=== PATIENT | male | born 1935 | race Caucasian/White ===

== ENCOUNTER 2016-12-19 13:13 | Inpatient (IN) ==
--- NOTE | 2016-12-19 13:23 | Emergency Department Note ---
Disposition Clinical Impression: Chest pain Qualifiers: Chest pain type: unspecified Qualified Code(s): R07.9 - Chest pain, unspecified Disposition: Admitted As Inpatient [facility] Care Provider[facility] - Forms: ED Satisfaction Letter Time of Disposition: 13:58 Chest Pain HPI - General Chief Complaint: ED Chest Pain Stated Complaint: elev troponin Time Seen by Provider: 12/19/16 13:20 Source: patient, EMS Mode of arrival: EMS Limitations: no limitations Vital Signs Reviewed: Yes Nursing Notes Reviewed: Yes - History of Present Illness HPI Narrative: 81-year-old who comes in complaining of chest pain was seen at the [facility] found have a slightly elevated troponin 0.89. Pt complaint: chest pain Onset (ago): Just VENDER Duration: intermittent Onset: during rest Pain Location: substernal, left chest Severity: moderate Quality: tightness, aching Pain Radiation: none Improves with: nitroglycerin Associated symptoms: Denies: nausea, vomiting Treatments prior to arrival chest pain: aspirin, nitroglycerin - Related Data Home Medications Medication Instructions Recorded Confirmed Alprazolam [Xanax 0.5 MG Tablet] 0.5 mg PO HS 05/02/16 08/14/16 Amlodipine [Norvasc] 5 mg PO BID 05/02/16 08/14/16 Aspirin 81 mg PO DAILY 05/02/16 08/14/16 Docusate [Colace] 100 mg PO DAILY 05/02/16 08/14/16 HYDROcodone/Acet 10/325 mg [[place] 1 tab PO Q6HR PRN 05/02/16 08/14/16 10-325 mg] Loratadine [Claritin] 10 mg PO DAILY 05/02/16 08/14/16 Metoprolol Succinate 100 mg PO DAILY 05/02/16 08/14/16 Mirabegron [Myrbetriq] 50 mg PO DAILY 05/02/16 08/14/16 Montelukast [Singulair] 10 mg PO DAILY 05/02/16 08/14/16 Polyethylene Glycol 3350 [MiraLAX] 17 gm PO DAILY 05/02/16 08/14/16 Tamsulosin [Flomax] 0.4 mg PO DAILY 05/02/16 08/14/16 Terazosin [Hytrin] 1 mg PO DAILY 05/02/16 08/14/16 Albuterol Sulfate 5 mg IH Q6H 08/14/16 08/14/16 Albuterol Sulfate [Proair 90 mcg IH Q4H 08/14/16 08/14/16 Respiclick] Ipratropium/Albuterol Neb [Duoneb] 3 ml IH Q6HR 08/14/16 08/14/16 Ipratropium/Albuterol Sulfate 4 gm IH Q4H 08/14/16 08/14/16 [Combivent Respimat Inhal [place]] Previous Rx's Medication Instructions Recorded GuaiFENesin/Dextromethorphan 1 each PO BID 14 Days 08/14/16 [Mucinex DM] Allergies Allergy/AdvReac Type Severity Reaction Status Date / Time No Known Allergies Allergy Verified 08/14/16 07:20 Constitutional: Denies: fever, chills, weakness, weight change Eyes: Denies: eye pain, eye discharge, vision change ENT ED: Denies: ear pain, throat pain, dental pain, hearing loss, epistaxis, congestion, dysphagia Cardiovascular: Reports: chest pain. Denies: palpitations, dyspnea on exertion , edema, syncope Respiratory: Denies: cough, dyspnea, wheezes, hemoptysis, stridor Gastrointestinal: Denies: abdominal pain, nausea, vomiting, diarrhea, constipation, hematemesis, melena, hematochezia Genitourinary: Denies: urgency, dysuria, frequency, hematuria Musculoskeletal: Denies: back pain, neck pain, arthralgia, myalgia Integumentary: Denies: rash, abrasion, lesions Neurological: Denies: headache, weakness, numbness, paresthesias, confusion, abnormal gait, vertigo Psychiatric: Denies: anxiety, depression, suicidal thoughts, homicidal thoughts , auditory hallucinations, visual hallucinations Endocrine: Denies: fatigue Hematological/Lymphatic: Denies: easy bleeding, easy bruising Allergic/Immunologic: Denies: facial swelling, urticaria Chest Pain PMH - Past Medical History Medical history: Reports: COPD, hypertension, other Psychiatric history: Reports: no psych history - Social History Smoking Status: Former smoker Alcohol use: Reports: rarely Drug use: Reports: none Physical Exam - General Limitations: no limitations General appearance: alert, in no apparent distress - Head Head exam: atraumatic, normocephalic, normal inspection - Eye Eye exam: Present: normal appearance, PERRL, EOMI - ENT ENT exam: normal exam, normal oropharynx, mucous membranes moist - Neck Neck exam: Present: normal inspection, full ROM, trachea midline - Chest Chest inspection: Present: normal inspection, symmetric chest wall rise - Respiratory Respiratory exam: Present: normal lung sounds bilaterally - Cardiovascular Cardiovascular exam: Present: regular rate, normal rhythm, normal heart sounds - Abdominal Exam Abdominal exam: Present: soft, Non-Tender. Absent: tenderness, distention, guarding, rebound, rigidity - Extremities Exam Extremities exam: Present: normal inspection, full ROM. Absent: tenderness, pedal edema - Expanded Lower Extremity Exam Neurovascular/Tendon exam: Absent: motor deficit, sensory deficit, tendon deficit Gait: observed and normal - Back Exam Back exam: Present: normal inspection, full ROM. Absent: tenderness - Neurological Exam Neurological exam: Present: alert, oriented X3 - Psychiatric Psychiatric exam: Present: normal affect, normal mood - Skin Skin exam: Present: warm, dry, intact, normal color Course - Consultations Consultation #1: Discussed with Dr. Saravia, admit. Time: 13:57 Vital Signs Temperature 98.2 F 12/19/16 13:16 Pulse Rate 80 12/19/16 13:16 Respiratory Rate 22 12/19/16 13:16 Blood Pressure 134/94 12/19/16 13:16 O2 Sat by Pulse Oximetry 96 12/19/16 13:16 Temperature 98.2 F 12/19/16 13:16 Pulse Rate 80 12/19/16 13:16 Respiratory Rate 22 12/19/16 13:16 Blood Pressure 134/94 12/19/16 13:16 O2 Sat by Pulse Oximetry 96 12/19/16 13:16 Oxygen Delivery Oxygen Delivery Room Air Heart Score - Score History: Moderately Suspicious EKG: Non Specific repolarisation Disturbance Age: Greater than 65 Risk Factors: Equal/Greater than 3 risk factor or history of atherosclerotic disease Troponin: 1-3x normal limit HEART Score Total: 7
[2016-12-19] MEDS ORDERED: Ondansetron 4 MG/2 ML VIAL IVP PRN (14:22)
[2016-12-19] MEDS ORDERED: Naloxone 0.4 MG/ML INJ IVP PRN (14:22)
[2016-12-19] MEDS ORDERED: Acetaminophen 325 MG TABLET PO PRN (14:22)
[2016-12-19] MEDS ORDERED: *HR* HYDROcodone/Acet 5/325 mg TABLET PO PRN (14:22)
[2016-12-19] MEDS ORDERED: *HR* Heparin 5,000 UNIT/ML VIAL IVP ONE (14:30)
[2016-12-19] MEDS ORDERED: *HR* Heparin 5,000 UNIT/ML VIAL IVP PRN ×4 (14:30→16:57)
[2016-12-19] MEDS ORDERED: Heparin 25,000 UNIT/500 ML D5W 25,000 UNIT/500 ML MLS IVC SCH ×2 (14:30→16:45)
--- NOTE | 2016-12-19 14:44 | Internal Med History&Physical ---
<[place] - Last Filed: 12/19/16 19:19> Date of Encounter: 12/19/16 Time of Encounter: 14:10 Assessment and Plan (1) Elevated troponin Current visit: Yes Status: Acute Initial troponin at [facility] 0.89. Pt had cp this am, but denies cp since arrival. Initial troponin here 0.13ng/mL. Spoke with Dr Moss at 1600. Recommends that we trend troponin, get an echo, and start heparin gtt. Pt has history of subdural hematoma in April 2016. Pt was seen at [facility] at that time, paperwork states that pt fell from his wheelchair, son also states the same, but now is convinced that Plavix caused the subdural hematoma. I discussed the increased risk of bleeding with son, away from the patient. He is aware and is POA, agrees to benefits and states to proceed with heparin gtt. Also at this time, pt changes his code status from DNR CCA to full code. Does want CPR and intubated. Repeat troponin x 2 Monitor labs Echo Heparin gtt (2) Chest pain Current visit: Yes Status: Resolved Pt states that he had chest pain earlier today, was given ASA and NTG sl prior to arrival, which helped alleviate his pain. EKG NSR with frequent PVCs, bedside monitor same. VS WNL rate 83, resps 20, BOP 149/76, 96% on room air. No chest wall tenderness and pain is not reproduceable. COPD well controlled per family member at bs. Monitor labs Continuous cardiac monitoring Continuous pulse oximetry Qualifiers: Chest pain type: unspecified Qualified Code(s): R07.9 - Chest pain, unspecified (3) COPD (chronic obstructive pulmonary disease) with emphysema Current visit: Yes Status: Chronic Pt COPD is well controlled with current medications. Denies recent change in cough, fever, wheezing. Continue home medications Continuous pulse oximetry 02 2L/nc Qualifiers: Emphysema type: unspecified Qualified Code(s): J43.9 - Emphysema, unspecified Internal Medicine - H&P: HPI Admitted From: Hospital to Hospital Transfer Plans for Post Hospital Care: Transfer Other History of present illness: Mr. Mckeon is a 81 year old male who presents as a transfer from the [facility] with chest pain and elevated troponin today. Pt states that earlier today he had chest pain, which has since resolved. ASA and NTG sl given prior to arrival to this ED. Initial troponin 0.89ng/dl at [facility]. EKG here shows sinus rhythm with frequent PVCs. History significant for bollous emphysema, cardiac stents, infrarenal AAA, diverticulosis, and subdural hematoma. Past Med Surg Social Fam HX - Past Medical History Medical history: COPD, hypertension, other Psychiatric history: no psych history - Social History Smoking Status: Former smoker Smokeless Tobacco Status: No Alcohol use: rarely Drug use: none Internal Medicine - H&P: Meds Amlodipine [Norvasc] 10 mg PO HS 05/02/16 [History] Aspirin 81 mg PO DAILY 05/02/16 [History] Docusate [Colace] 100 mg PO DAILY 05/02/16 [History] Montelukast [Singulair] 10 mg PO DAILY 05/02/16 [History] Polyethylene Glycol 3350 [MiraLAX] 17 gm PO DAILY PRN 05/02/16 [History] Tamsulosin [Flomax] 0.4 mg PO DAILY 05/02/16 [History] GuaiFENesin/Dextromethorphan [Mucinex DM] 1 each PO BID 14 Days 08/14/16 [Rx] Ipratropium/Albuterol Neb [Duoneb] 3 ml IH Q6HR 08/14/16 [History] Acetaminophen [Tylenol] 975 mg PO DAILY PRN MDD 3000mg 12/19/16 [History] Bisacodyl [Woman's Laxative] 10 mg PO DAILY PRN 12/19/16 [History] Carboxymethylcellulose Sodium [Refresh Celluvisc] 1 each OP QID 12/19/16 [ History] Chlorhexidine Gluconate [Betasept] 15 ml TP DAILY 12/19/16 [History] Ferrous Gluconate 324 mg PO DAILY 12/19/16 [History] Fluticasone Propionate Nasal [Flonase] 1 spray NS BID 12/19/16 [History] Furosemide [Lasix] 40 mg PO DAILY 12/19/16 [History] LevETIRAcetam [Keppra] 750 mg PO BID 12/19/16 [History] Mag Hydrox/Al Hydrox/Simeth [Maalox Advanced Suspension] 10 ml PO QID PRN [History] Magnesium Hydroxide [Milk of Magnesia] 30 ml PO DAILY PRN 12/19/16 [History] Megestrol Acetate [Megace] 10 ml PO BID 12/19/16 [History] Melatonin 6 mg PO HS PRN 12/19/16 [History] Metoprolol Succinate 25 mg PO DAILY 12/19/16 [History] Mirtazapine [Remeron] 30 mg PO HS 12/19/16 [History] Nitroglycerin 0.4 mg SL Q5M PRN 12/19/16 [History] Oxybutynin [Ditropan] 5 mg PO BID 12/19/16 [History] Tiotropium [Spiriva] 18 mcg IH DAILY 12/19/16 [History] Tramadol HCl [Ultram] 25 mg PO QAM 12/19/16 [History] Tramadol HCl [Ultram] 50 mg PO HS PRN 12/19/16 [History] Allergies No Known Allergies Allergy (Verified 12/19/16 14:48) All Systems PM: A 10-system review of systems was performed and is negative for pertinent findings except as documented above in the HPI. - Constitutional Constitutional: no chills, no fever(s), no falls, no weakness - EENT Eyes: no blurry vision - Cardiovascular Cardiovascular ROS IM: no chest pain, no dyspnea, no edema - Respiratory Respiratory: dyspnea, dyspnea on exertion, no cough, no wheezing - Gastrointestinal Gastrointestinal: no diarrhea, no nausea, no vomiting - Neurological Neurological ROS: no dizziness - Constitutional Vitals: Temp Pulse Resp BP Pulse Ox 98.2 F 83 22 139/74 96 12/19/16 13:16 12/19/16 13:50 12/19/16 13:16 12/19/16 13:50 12/19/16 13:50 General appearance: Present: A&O X 3, answers questions appropriately - Head Head exam: Present: atraumatic - ENT ENT exam: Present: mucous membranes dry, normal external ear exam - Neck Neck exam general surgery: Present: trachea midline. Absent: tenderness - Respiratory Respiratory exam: Present: decreased breath sounds, CTAB. Absent: chest wall tenderness, rales, rhonchi, wheezes - Cardiovascular Cardiovascular exam: Present: irregular rhythm, +S1, +S2. Absent: tachycardia - GI/Abdominal GI/Abdominal exam: Present: distended, firm, normal bowel sounds. Absent: tenderness - Neurological Exam Neurological exam: Present: alert, oriented X3 Internal Med - H&P Results - Labs CBC & Chem 7: 12/19/16 14:51 Labs: Sodium 141 Potassium 4.3 Chloride 107 C02 28 BUN 28 H Creatinine 148H Glucose 158 H CK 285 - EKG Data EKG shows normal: sinus rhythm, QRS complexes Rate: normal - EKG Data Prior EKG available for review: yes When compared to previous EKG: there is no significant change EKG comments: 12/19/16 16:05 NSR with PVCs <Joy Rodriguez - Last Filed: 12/19/16 19:38> Date of Encounter: 12/19/16 Internal Medicine - H&P: HPI History of present illness: Mr. Mckeon is a 81 year old male All Systems PM: A 10-system review of systems was performed and is negative for pertinent findings except as documented above in the HPI. - Constitutional Vitals: Temp Pulse Resp BP Pulse Ox 98.3 F 68 18 156/85 98 12/19/16 16:01 12/19/16 16:01 12/19/16 17:09 12/19/16 16:01 12/19/16 17:09 Internal Med - H&P Results - Labs CBC & Chem 7: 12/19/16 14:51 Labs: Short CBC 12/19/16 Range/Units 14:51 WBC 5.0 (4.3-11.1) K/mcL Hgb 12.1 L (12.9-16.9) g/dL Hct 36.6 L (37.5-50.1) % Plt Count 103 L (140-400) K/mcL Cardiac Enzymes 12/19/16 Range/Units 14:51 Troponin I 0.13 H* (0-0.03) ng/mL - Attending Attestation I examined this patient and reviewed laboratory, imaging and all diagnostic data. My medical decision-making was reviewed with KARLA Dobbs. I agree with the documented findings, disposition and treatment plan as described above.
[2016-12-19 15:12] LABS: Activated Partial Thrombo Time 23.6 Seconds (26.0-36.0)
[2016-12-19 15:25] LABS: Hematocrit 36.6 % (37.5-50.1); Hemoglobin 12.1 g/dL (12.9-16.9); Immature Platelets 12.6 % (1.1-6.1); Mean Corpuscular HGB Conc 33.1 g/dL (31.6-35.5); Mean Corpuscular Hemoglobin 31.3 pg (28.0-33.3); Mean Corpuscular Volume 94.6 fL (83.0-100.0); Mean Platelet Volume 11.8 fL (9.4-12.4); Red Blood Count 3.87 M/mcL (4.19-5.50); Red Cell Distribution Width 14.4 % (11.5-14.5)
[2016-12-19] MEDS ORDERED: Mag Hydrox/Al Hydrox/Simeth 30 ML UDC PO PRN (15:46)
[2016-12-19] MEDS ORDERED: Melatonin 3 MG TABLET PO PRN (15:46)
[2016-12-19] MEDS ORDERED: Ipratropium/Albuterol Neb 3 ML IH SCH (16:00)
--- NOTE | 2016-12-19 16:44 | Electrocardiograph Report ---
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
[2016-12-19] MEDS ORDERED: CARBOXYMETHYLCELLULOSE SODIUM OP SCH (17:00)
[2016-12-19] MEDS: Ipratropium/Albuterol Neb 3 ML IH SCH ×2 (17:09→22:11)
[2016-12-19 17:31] LABS: Activated Partial Thrombo Time 24.7 Seconds (26.0-36.0)
[2016-12-19] MEDS ORDERED: 0.9 % Sodium Chloride 1,000 ML ONE (17:36)
[2016-12-19] MEDS ORDERED: amLODIPine 5 MG TABLET PO SCH (21:00)
[2016-12-19] MEDS: Megestrol Acetate 400 MG/10 ML UDC PO SCH (21:41)
[2016-12-19] MEDS: levETIRAcetam 250 MG TABLET PO SCH (21:41)
[2016-12-19] MEDS: GuaiFENesin/Dextromethorphan TABLET PO SCH (21:42)
[2016-12-19] MEDS: amLODIPine 5 MG TABLET PO SCH (21:42)
[2016-12-19] MEDS: Mirtazapine 15 MG TABLET PO SCH (21:42)
[2016-12-19] MEDS: Fluticasone Propionate Nasal 50 MCG/SPRAY BOTTLE NS SCH (21:43)
[2016-12-20 02:42] LABS: Basophils # 0.1 K/mcL (0.0-0.2); Basophils % 0.9 %; Eosinophils # 0.1 K/mcL (0.0-0.6); Hematocrit 38.7 % (37.5-50.1); Hemoglobin 12.9 g/dL (12.9-16.9); Lymphocytes # 1.5 K/mcL (0.6-4.6); Mean Corpuscular HGB Conc 33.3 g/dL (31.6-35.5); Mean Corpuscular Hemoglobin 31.3 pg (28.0-33.3); Mean Corpuscular Volume 93.9 fL (83.0-100.0); Mean Platelet Volume 11.2 fL (9.4-12.4); Monocytes # 0.5 K/mcL (0.0-1.3); Monocytes % 8.8 %; Neutrophils # 3.7 K/mcL (1.6-8.9); Platelet Count 130 K/mcL (140-400); Red Blood Count 4.12 M/mcL (4.19-5.50); Red Cell Distribution Width 14.4 % (11.5-14.5); Segmented Neutrophils % 62.3 %
[2016-12-20 02:49] LABS: BUN/Creatinine Ratio 20 (6-26); Blood Urea Nitrogen 27 mg/dL (8-26); Calcium 9.1 mg/dL (8.6-10.8); Carbon Dioxide 24 mEq/L (19-29); Chloride 107 mEq/L (98-109); Glucose 111 mg/dL (70-99); Osmolality,Calculated 302 (280-300); Potassium 3.8 mEq/L (3.5-4.5); Sodium 143 mEq/L (136-145); eGFR For African Americans > 60 (> 60); eGFR For Non-African Americans 51 (> 60)
[2016-12-20] MEDS: Ipratropium/Albuterol Neb 3 ML IH SCH ×4 (04:04→21:23)
[2016-12-20] MEDS ORDERED: Metoprolol XL (24 HR) Succ 25 MG TAB.ER.24H PO SCH (09:00)
[2016-12-20] MEDS ORDERED: CHLORHEXIDINE GLUCONATE TP SCH (09:00)
[2016-12-20] MEDS ORDERED: Ferrous Gluconate [Ferrous Gluconate] 324 MG PO SCH (09:00)
[2016-12-20] MEDS ORDERED: Tiotropium 18 MCG inhalation IH SCH (09:00)
[2016-12-20] MEDS: levETIRAcetam 250 MG TABLET PO SCH ×2 (09:41→21:42)
[2016-12-20] MEDS: GuaiFENesin/Dextromethorphan TABLET PO SCH ×2 (09:42→21:42)
[2016-12-20] MEDS: Fluticasone Propionate Nasal 50 MCG/SPRAY BOTTLE NS SCH ×2 (09:43→22:57)
[2016-12-20] MEDS: Aspirin 81 MG TAB.CHEW PO SCH (09:43)
[2016-12-20] MEDS: Furosemide 40 MG TABLET PO SCH (09:43)
[2016-12-20] MEDS: Metoprolol XL (24 HR) Succ 25 MG TAB.ER.24H PO SCH (09:43)
[2016-12-20] MEDS: Megestrol Acetate 400 MG/10 ML UDC PO SCH ×2 (09:44→21:41)
[2016-12-20] MEDS: traMADol 50 MG TABLET PO SCH (09:44)
--- NOTE | 2016-12-20 10:12 | Cardiology Consult Note ---
Date of Encounter: 12/20/16 Time of Encounter: 10:10 Assessment and Plan (1) Elevated troponin Current Visit: Yes Status: Acute - Troponin at [facility] was 0.89 - Repeat here was 0.13 and is now 0.12 x2 - Patient denies any further chest pain - Stopped taking Plavix in April after a fall with subsequent SDH, treated at [facility] on Keppra - Patient is now a full code and does want intervention, if needed. Son is POA - Discontinue heparin gtt - Echo pending - Will also order nuclear stress test - Will optimize medical therapy - Cr above baseline at 1.35, will re-hydrate - Patient has multiple relative contraindications to heart cath, will proceed with echo and nuclear stress test - Further recommendations pending stress test, echo and attending evaluation Discussion w patient/family: The assessment and plan as outlined above was discussed with the patient and/or family members who expressed understanding and agreement. All questions were answered. Thank you for involving us in the care of your patient. Please call with any questions. History of Present Illness Consult date: 12/20/16 Requesting physician: Joy Rodriguez Consult reason: elevated trop Chief complaint: chest pain History of present illness: Mr. Mckeon is a 81 year old male who presented to the ED yesterday from the [facility] for chest pain and elevated troponin. Patient reports that he started having chest pain yesterday afternoon, subxiphoid, nonradiating, "felt like gas" lasted one hour and then resolved spontaneously. No other associated symptoms or radiation. The patient was previously a DNR-CCA. However, his son is power of senior trial attorney and the patient is now a full code. Patient has no acute complaints stating he is not had any further episodes of chest pain and "wants to go home." The patient does have a history of coronary artery disease requiring stent, but he is unsure when. Also has a history of hypertension. Recently had a subdural hematoma after a fall from his wheelchair in April 2016. He and his son were convinced that this was due to the Plavix so he quit taking it. Past Med Surg Social Fam HX - Past Medical History Medical history: COPD, hypertension, other Psychiatric history: no psych history - Social History Smoking Status: Former smoker Smokeless Tobacco Status: No Alcohol use: rarely Drug use: none Medications and Allergies Amlodipine [Norvasc] 10 mg PO HS 05/02/16 [History] Aspirin 81 mg PO DAILY 05/02/16 [History] Docusate [Colace] 100 mg PO DAILY 05/02/16 [History] Montelukast [Singulair] 10 mg PO DAILY 05/02/16 [History] Polyethylene Glycol 3350 [MiraLAX] 17 gm PO DAILY PRN 05/02/16 [History] Tamsulosin [Flomax] 0.4 mg PO DAILY 05/02/16 [History] GuaiFENesin/Dextromethorphan [Mucinex DM] 1 each PO BID 14 Days 08/14/16 [Rx] Ipratropium/Albuterol Neb [Duoneb] 3 ml IH Q6HR 08/14/16 [History] Acetaminophen [Tylenol] 975 mg PO DAILY PRN MDD 3000mg 12/19/16 [History] Bisacodyl [Woman's Laxative] 10 mg PO DAILY PRN 12/19/16 [History] Carboxymethylcellulose Sodium [Refresh Celluvisc] 1 each OP QID 12/19/16 [ History] Chlorhexidine Gluconate [Betasept] 15 ml TP DAILY 12/19/16 [History] Ferrous Gluconate 324 mg PO DAILY 12/19/16 [History] Fluticasone Propionate Nasal [Flonase] 1 spray NS BID 12/19/16 [History] Furosemide [Lasix] 40 mg PO DAILY 12/19/16 [History] LevETIRAcetam [Keppra] 750 mg PO BID 12/19/16 [History] Mag Hydrox/Al Hydrox/Simeth [Maalox Advanced Suspension] 10 ml PO QID PRN [History] Magnesium Hydroxide [Milk of Magnesia] 30 ml PO DAILY PRN 12/19/16 [History] Megestrol Acetate [Megace] 10 ml PO BID 12/19/16 [History] Melatonin 6 mg PO HS PRN 12/19/16 [History] Metoprolol Succinate 25 mg PO DAILY 12/19/16 [History] Mirtazapine [Remeron] 30 mg PO HS 12/19/16 [History] Nitroglycerin 0.4 mg SL Q5M PRN 12/19/16 [History] Oxybutynin [Ditropan] 5 mg PO BID 12/19/16 [History] Tiotropium [Spiriva] 18 mcg IH DAILY 12/19/16 [History] Tramadol HCl [Ultram] 25 mg PO QAM 12/19/16 [History] Tramadol HCl [Ultram] 50 mg PO HS PRN 12/19/16 [History] Allergies No Known Allergies Allergy (Verified 12/19/16 14:48) All Systems Review: A 10-system review of systems was performed and is negative for pertinent findings except as documented above in the HPI. - Constitutional Constitutional: no fatigue, no headache(s) - EENT Eyes: no blurred vision - Cardiovascular Cardiovascular: chest pain at rest, no diaphoresis, no dyspnea at rest, no dyspnea on exertion, no irregular heart rhythm, no leg edema, no lightheadedness , no orthopnea, no syncope - Respiratory Respiratory: no cough, no dyspnea - Gastrointestinal Gastrointestinal: no abdominal pain, no diarrhea, no nausea - Musculoskeletal Musculoskeletal: no back pain - Integumentary Integumentary: no rash - Neurological Neurological: no abnormal speech, no dizziness, no focal weakness, no syncope - Hematological/Lymphatic Hematologic/Lymphatic: no easy bleeding, no easy bruising Physical Examination Vital Signs, Last 4 Hours Temp Resp Pulse Ox 12/20/16 08:04 98.4 F 18 96 General: Conversant, No Apparent Distress HEENT: Atraumatic, Normocephaly, Mucus Membranes Moist Neck: No JVD, Normal carotid pulses Cardiac: Reg Rate and Rhythm, Normal S1 and S2, No Murmur Lungs: Normal Breath Sounds, No Wheeze, Rales, Rhonchi Neuro: Alert and responsive, No focal deficits noted Abdomen: Soft, Non-Tender Skin: No rashes noted on visualized skin Musculoskeletal: No Chest Wall Tenderness Extremities: No Clubbing, No Cyanosis, No Edema, Normal Pulses Results 12/20/16 01:02 12/20/16 01:02 Lab Results 12/19/16 12/19/16 12/19/16 14:51 14:51 14:51 WBC 5.0 Hgb 12.1 L Hct 36.6 L Plt Count 103 L INR 1.0 APTT 23.6 L Sodium Potassium Chloride Carbon Dioxide BUN Creatinine Glucose Calcium Magnesium Troponin I 0.13 H* 12/19/16 12/19/16 12/19/16 17:09 17:09 21:10 WBC Hgb Hct Plt Count INR 1.0 APTT 24.7 L Sodium Potassium Chloride Carbon Dioxide BUN Creatinine Glucose Calcium Magnesium 2.4 Troponin I 0.12 H* 12/20/16 12/20/16 12/20/16 01:02 01:02 01:02 WBC 5.9 Hgb 12.9 Hct 38.7 Plt Count 130 L INR APTT 35.3 Sodium Potassium Chloride Carbon Dioxide BUN Creatinine Glucose Calcium Magnesium Troponin I 0.12 H* 12/20/16 01:02 WBC Hgb Hct Plt Count INR APTT Sodium 143 Potassium 3.8 Chloride 107 Carbon Dioxide 24 BUN 27 H Creatinine 1.35 H Glucose 111 H Calcium 9.1 Magnesium Troponin I - Imaging and Cardiology Chest Xray: image reviewed Echo: pending - EKG Interpretation EKG results cardiology: personally reviewed (RBBB with frequent PVC's, no previous available at this time), no diagnostic ischemia Consult Discharge Plan - Plan [facility]errals: [facility] [Primary Care Provider] -
--- NOTE | 2016-12-20 18:48 | Internal Med Progress Note ---
Date of Encounter: 12/20/16 Time of Encounter: 18:42 - Assessment and plan (1) NSTEMI (non-ST elevated myocardial infarction) Current Visit: Yes Status: Acute Assessment and plan: Troponin at [facility] was 0.89 - Repeat here was 0.13 and is now 0.12 x2 - Patient denies any further chest pain - Stopped taking Plavix in April after a fall with subsequent SDH, treated at [place], on Keppra cardio was consulted, as per cardio ::::::,Given recent SDH, JO-ANN, and thrombocytopenia, he is at increased risk for LHC. Recommended regadenoson nuclear stress test, but patient states that he does not want a heart cath or stress test. We decided to check an echocardiogram after discussion with his son who is the POA> If his LV function is normal, will just proceed with medical management. If LVEF is significantly decreased, will reassess possibility of higher risk LHC. Complete TTE was done that showed LVEF 60-65%, moderate LVH, mild diastolic dysfunction, normal RV, mild AR, normal RVSP. No further cardiac testing is necessary at this time as per cardiology. Recommend continuing current medical therapy. Continue to monitor BP and add additional antihypertensive medications as necessary. (2) COPD (chronic obstructive pulmonary disease) with emphysema Current Visit: Yes Status: Chronic Assessment and plan: stable continue home meds. Qualifiers: Emphysema type: unspecified Qualified Code(s): J43.9 - Emphysema, unspecified - Time Spent With Patient 25 - 35 minutes - Subjective Interval history: Patient seen at the bedside, denies any complaints, chest pain-free at this time. Denies any shortness of breath. Admitted for an STEMI. Cardiology consult awaited. - Constitutional Vitals: Temp Pulse Resp BP Pulse Ox 97.6 F 75 18 149/90 95 12/20/16 16:41 12/20/16 16:41 12/20/16 16:41 12/20/16 16:41 12/20/16 16:41 General appearance: Present: A&O X 3, answers questions appropriately Exam: General: Conversant, No Apparent Distress HEENT: Atraumatic, Normocephaly, Mucus Membranes Moist Neck: No JVD, Normal carotid pulses Cardiac: Reg Rate and Rhythm, Normal S1 and S2, No Murmur Lungs: Normal Breath Sounds, No Wheeze, Rales, Rhonchi Neuro: Alert and responsive, No focal deficits noted Abdomen: Soft, Non-Tender Skin: No rashes noted on visualized skin Musculoskeletal: No Chest Wall Tenderness Extremities: No Clubbing, No Cyanosis, No Edema, Normal Pulses Internal Medicine: Result - Labs CBC & Chem 7: 12/20/16 01:02 12/20/16 01:02 Labs: Short CBC 12/20/16 Range/Units 01:02 WBC 5.9 (4.3-11.1) K/mcL Hgb 12.9 (12.9-16.9) g/dL Hct 38.7 (37.5-50.1) % Plt Count 130 L (140-400) K/mcL Neutrophils # 3.7 (1.6-8.9) K/mcL BMP 12/20/16 01:02 Sodium 143 Potassium 3.8 Chloride 107 Carbon Dioxide 24 BUN 27 H Creatinine 1.35 H Glucose 111 H Calcium 9.1 Cardiac Enzymes 12/19/16 12/20/16 Range/Units 21:10 01:02 Troponin I 0.12 H* 0.12 H* (0-0.03) ng/mL - ABG Interpretation ABG results: PT/INR, D-dimer PT 11.0 Seconds (9.4-12.1) 12/19/16 17:09 Consult Discharge Plan - Plan [facility]errals: [facility] [Primary Care Provider] -
--- NOTE | 2016-12-20 18:51 | Discharge Summary ---
Date of Encounter: 12/21/16 Time of Encounter: 18:49 - Discharge Diagnosis (1) Elevated troponin Priority: Primary Status: Acute (2) COPD (chronic obstructive pulmonary disease) with emphysema Priority: Secondary Status: Chronic Qualifiers: Emphysema type: unspecified Qualified Code(s): J43.9 - Emphysema, unspecified (3) Non-STEMI (non-ST elevated myocardial infarction) Priority: Primary Status: Acute - Discharge Medications Home Medications: Amlodipine [Norvasc] 10 mg PO HS 05/02/16 [History] Aspirin 81 mg PO DAILY 05/02/16 [History] Docusate [Colace] 100 mg PO DAILY 05/02/16 [History] Montelukast [Singulair] 10 mg PO DAILY 05/02/16 [History] Polyethylene Glycol 3350 [MiraLAX] 17 gm PO DAILY PRN 05/02/16 [History] Tamsulosin [Flomax] 0.4 mg PO DAILY 05/02/16 [History] GuaiFENesin/Dextromethorphan [Mucinex DM] 1 each PO BID 14 Days 08/14/16 [Rx] Ipratropium/Albuterol Neb [Duoneb] 3 ml IH Q6HR 08/14/16 [History] Acetaminophen [Tylenol] 975 mg PO DAILY PRN MDD 3000mg 12/19/16 [History] Bisacodyl [Woman's Laxative] 10 mg PO DAILY PRN 12/19/16 [History] Carboxymethylcellulose Sodium [Refresh Celluvisc] 1 each OP QID 12/19/16 [ History] Chlorhexidine Gluconate [Betasept] 15 ml TP DAILY 12/19/16 [History] Ferrous Gluconate 324 mg PO DAILY 12/19/16 [History] Fluticasone Propionate Nasal [Flonase] 1 spray NS BID 12/19/16 [History] Furosemide [Lasix] 40 mg PO DAILY 12/19/16 [History] LevETIRAcetam [Keppra] 750 mg PO BID 12/19/16 [History] Mag Hydrox/Al Hydrox/Simeth [Maalox Advanced Suspension] 10 ml PO QID PRN [History] Magnesium Hydroxide [Milk of Magnesia] 30 ml PO DAILY PRN 12/19/16 [History] Megestrol Acetate [Megace] 10 ml PO BID 12/19/16 [History] Melatonin 6 mg PO HS PRN 12/19/16 [History] Metoprolol Succinate 25 mg PO DAILY 12/19/16 [History] Mirtazapine [Remeron] 30 mg PO HS 12/19/16 [History] Nitroglycerin 0.4 mg SL Q5M PRN 12/19/16 [History] Oxybutynin [Ditropan] 5 mg PO BID 12/19/16 [History] Tiotropium [Spiriva] 18 mcg IH DAILY 12/19/16 [History] Tramadol HCl [Ultram] 25 mg PO QAM 12/19/16 [History] Tramadol HCl [Ultram] 50 mg PO HS PRN 12/19/16 [History] Allergies/Adverse Reactions: Allergies No Known Allergies Allergy (Verified 12/19/16 14:48) Procedures/tests Complete & Pending: Procedures Performed prior 72 hours Category Date Time Status EV echocardiogram Stat Y 12/20/16 16:26 Completed Date of admission: 12/19/16 14:15 Primary care physician: PCP [facility] Consults: 12/19/16 15:44 Consult to Cardiology [CONS] Stat Comment: Consulting Provider: Cardiology [facility] Reason for Consult: Elevated troponin, redraw elevated Time Notified: 15:45 Call Completed: Yes 12/20/16 14:49 Consult to Kitchen Clerk [CONS] Routine Reason for SW Consult: pt [facility] Discharging clinician: Deanna Spear Anticipated date of discharge: 12/21/16 - Patient Status Disposition: Home, Self-Care Condition: Fair Functional capacity at discharge: independent ambulation Overall status at discharge: patient is back to baseline - Discharge Instructions [facility] With: [facility] [[facility] Care Provider] - - Diet and Activity Activity: as per physical therapy Diet: advance to your usual diet, other (cardiac diet) Interval History: Mr. Mckeon is a 81 year old male who presented to the ED yesterday from the [facility] for chest pain and elevated troponin. Patient reports that he started having chest pain yesterday afternoon, subxiphoid, nonradiating, "felt like gas" lasted one hour and then resolved spontaneously. No other associated symptoms or radiation. The patient was previously a DNR-CCA. However, his son is power of food services coordinator and the patient is now a full code. Patient has no acute complaints stating he is not had any further episodes of chest pain and "wants to go home." The patient does have a history of coronary artery disease requiring stent, but he is unsure when. Also has a history of hypertension. Recently had a subdural hematoma after a fall from his wheelchair in April 2016. He and his son were convinced that this was due to the Plavix so he quit taking it. Hospital course: Troponin at [facility] was 0.89 - Repeat here was 0.13 and is now 0.12 x2 - Patient denies any further chest pain - Stopped taking Plavix in April after a fall with subsequent SDH, treated at [place], on [facility] cardio was consulted, as per cardio ::::::,Given recent SDH, JO-ANN, and thrombocytopenia, he is at increased risk for LHC. Recommended regadenoson nuclear stress test, but patient states that he does not want a heart cath or stress test. We decided to check an echocardiogram after discussion with his son who is the POA> If his LV function is normal, will just proceed with medical management. If LVEF is significantly decreased, will reassess possibility of higher risk LHC. Complete TTE was done that showed LVEF 60-65%, moderate LVH, mild diastolic dysfunction, normal RV, mild AR, normal RVSP. No further cardiac testing is necessary at this time as per cardiology. Recommend continuing current medical therapy. patinet stable to be dc and follow up as OP with cardiology. Time spent discussing smoking cessation with patient: more than 10 minutes - Time Spent with Patient Total time spent providing and/or coordinating discharge services: Greater than 30 minutes - Constitutional Vitals: Temp Pulse Resp BP Pulse Ox 97.6 F 75 18 149/90 95 12/20/16 16:41 12/20/16 16:41 12/20/16 16:41 12/20/16 16:41 12/20/16 16:41 General appearance: Present: A&O X 3, answers questions appropriately Exam: General: Conversant, No Apparent Distress HEENT: Atraumatic, Normocephaly, Mucus Membranes Moist Neck: No JVD, Normal carotid pulses Cardiac: Reg Rate and Rhythm, Normal S1 and S2, No Murmur Lungs: Normal Breath Sounds, No Wheeze, Rales, Rhonchi Neuro: Alert and responsive, No focal deficits noted Abdomen: Soft, Non-Tender Skin: No rashes noted on visualized skin Musculoskeletal: No Chest Wall Tenderness Extremities: No Clubbing, No Cyanosis, No Edema, Normal Pulses
[2016-12-20] MEDS: amLODIPine 5 MG TABLET PO SCH (21:42)
[2016-12-20] MEDS: Mirtazapine 15 MG TABLET PO SCH (21:42)
[2016-12-21] MEDS ORDERED: GI Cocktail 40 ML EACH PO ONE (00:28)
[2016-12-21] MEDS: Ipratropium/Albuterol Neb 3 ML IH SCH ×2 (04:28→11:00)
[2016-12-21 09:05] LABS: Basophils % 0.6 %; Eosinophils # 0.1 K/mcL (0.0-0.6); Eosinophils % 0.9 %; Hematocrit 39.3 % (37.5-50.1); Hemoglobin 13.3 g/dL (12.9-16.9); Lymphocytes # 1.4 K/mcL (0.6-4.6); Lymphocytes % 20.6 %; Mean Corpuscular HGB Conc 33.8 g/dL (31.6-35.5); Mean Corpuscular Hemoglobin 31.2 pg (28.0-33.3); Mean Corpuscular Volume 92.3 fL (83.0-100.0); Mean Platelet Volume 11.8 fL (9.4-12.4); Monocytes # 0.6 K/mcL (0.0-1.3); Monocytes % 8.7 %; Neutrophils # 4.6 K/mcL (1.6-8.9); Platelet Count 110 K/mcL (140-400); Red Blood Count 4.26 M/mcL (4.19-5.50); Red Cell Distribution Width 14.5 % (11.5-14.5); Segmented Neutrophils % 68.2 %
[2016-12-21 09:28] LABS: Calcium 9.7 mg/dL (8.6-10.8)
[2016-12-21 09:34] LABS: Potassium 4.9 mEq/L (3.5-4.5)
[2016-12-21] MEDS ORDERED: 0.9 % Sodium Chloride 500 ML IVC STA (10:01)
[2016-12-21] MEDS: Megestrol Acetate 400 MG/10 ML UDC PO SCH (10:11)
[2016-12-21] MEDS: levETIRAcetam 250 MG TABLET PO SCH (10:12)
[2016-12-21] MEDS: Metoprolol XL (24 HR) Succ 25 MG TAB.ER.24H PO SCH (10:12)
[2016-12-21] MEDS: Fluticasone Propionate Nasal 50 MCG/SPRAY BOTTLE NS SCH (10:13)
[2016-12-21] MEDS: GuaiFENesin/Dextromethorphan TABLET PO SCH (10:13)
[2016-12-21] MEDS: Aspirin 81 MG TAB.CHEW PO SCH (10:13)
[2016-12-21] MEDS: traMADol 50 MG TABLET PO SCH (10:13)
[2016-12-21] MEDS: Furosemide 40 MG TABLET PO SCH (10:27)
[2016-12-21 10:53] VITALS: BP 162/83
--- NOTE | 2016-12-21 12:05 | Discharge Summary ---
Date of Encounter: 12/21/16 Time of Encounter: 11:30 - Discharge Diagnosis (1) Elevated troponin Priority: Primary Status: Acute (2) COPD (chronic obstructive pulmonary disease) with emphysema Priority: Secondary Status: Chronic Qualifiers: Emphysema type: unspecified Qualified Code(s): J43.9 - Emphysema, unspecified (3) HTN (hypertension) Priority: Secondary Status: Chronic Qualifiers: Hypertension type: essential hypertension Qualified Code(s): I10 - Essential (primary) hypertension - Discharge Medications Prescriptions: Albuterol Neb [Proventil Neb] 2.5 mg IH Q6HR 30 Days Tramadol HCl [Ultram] 25 mg PO QAM #30 tablet Home Medications: Amlodipine [Norvasc] 10 mg PO HS 05/02/16 [History] Aspirin 81 mg PO DAILY 05/02/16 [History] Docusate [Colace] 100 mg PO DAILY 05/02/16 [History] Montelukast [Singulair] 10 mg PO DAILY 05/02/16 [History] Tamsulosin [Flomax] 0.4 mg PO DAILY 05/02/16 [History] Acetaminophen [Tylenol] 975 mg PO DAILY PRN MDD 3000mg 12/19/16 [History] Bisacodyl [Woman's Laxative] 10 mg PO DAILY PRN 12/19/16 [History] Carboxymethylcellulose Sodium [Refresh Celluvisc] 1 each OP QID 12/19/16 [ History] Chlorhexidine Gluconate [Betasept] 15 ml TP DAILY 12/19/16 [History] Ferrous Gluconate 324 mg PO DAILY 12/19/16 [History] Fluticasone Propionate Nasal [Flonase] 1 spray NS BID 12/19/16 [History] LevETIRAcetam [Keppra] 750 mg PO BID 12/19/16 [History] Mag Hydrox/Al Hydrox/Simeth [Maalox Advanced Suspension] 10 ml PO QID PRN [History] Megestrol Acetate [Megace] 10 ml PO BID 12/19/16 [History] Melatonin 6 mg PO HS PRN 12/19/16 [History] Metoprolol Succinate 25 mg PO DAILY 12/19/16 [History] Mirtazapine [Remeron] 30 mg PO HS 12/19/16 [History] Nitroglycerin 0.4 mg SL Q5M PRN 12/19/16 [History] Oxybutynin [Ditropan] 5 mg PO BID 12/19/16 [History] Tiotropium [Spiriva] 18 mcg IH DAILY 12/19/16 [History] Tramadol HCl [Ultram] 50 mg PO HS PRN 12/19/16 [History] Albuterol Neb [Proventil Neb] 2.5 mg IH Q6HR 30 Days 12/21/16 [Rx] GuaiFENesin/Dextromethorphan [Mucinex Dm] 1 each PO BID 7 Days 12/21/16 [Rx] Tramadol HCl [Ultram] 25 mg PO QAM #30 tablet 12/21/16 [Rx] Allergies/Adverse Reactions: Allergies No Known Allergies Allergy (Verified 12/19/16 14:48) Procedures/tests Complete & Pending: Procedures Performed prior 72 hours Category Date Time Status EV echocardiogram Stat Y 12/20/16 16:26 Completed Date of admission: 12/19/16 14:15 Primary care physician: PCP [facility] Consults: 12/19/16 15:44 Consult to Cardiology [CONS] Stat Comment: Consulting Provider: Cardiology [facility] Reason for Consult: Elevated troponin, redraw elevated Time Notified: 15:45 Call Completed: Yes 12/20/16 14:49 Consult to Classifier Operator [CONS] Routine Reason for SW Consult: pt from [facility] - Patient Status Disposition: Transfer SNF Condition: Fair Functional capacity at discharge: uses cane/walker Overall status at discharge: patient is not back to baseline - Discharge Instructions Follow Up With: [facility] [[facility] Care Provider] - (PATIENT IS [facility] INPATIENT) Additional Instructions: check BMP on 12/23/16. fluid restriction 1.8L /day - Diet and Activity Activity: as per physical therapy Diet: low fat, low cholesterol, low salt diet (fluid restriction 1.8 L/day) Interval History: Patient has no complaints and is eager to go home. K 4.9. Hospital course: Mr. Mckeon is a 81 year old male with past medical history of COPD and HTN who was transferred from [facility] ED due to chest pain and elevated troponin. EKg showed no acute changes. troponin was elevated at 0.13. His chest resolved after ASA and NTG and patient remained asymptomatic. Patient was deemed not candidate for LHC due to SDH, JO-ANN and thrombocytopenia. He was recommended nuclear stress test ; however, patient declined it. He agreed with medical management and echocardiogram which showed LVEF 60%, moderate LVH. mild diastolic dysfunction. His creatinine increased to 1.6 and developed hyperkalemia at 4.9 likely secondary to his home dose of lasix. Repeat K was 4.9. Given only mild diastolic dysfunction, his lasix was stopped and he received kayexalate. PLAN continue metoprolol, aspirin. stop lasix. start fluid restriction 1.8 L/ day. check BMP on 12/23/16. - Time Spent with Patient Total time spent providing and/or coordinating discharge services: - Constitutional Vitals: Temp Pulse Resp BP Pulse Ox 98.0 F 46 20 162/83 96 12/21/16 10:51 12/21/16 10:51 12/21/16 10:51 12/21/16 10:51 12/21/16 10:51 General appearance: Present: cooperative, A&O X 3, pleasant, no acute distress, answers questions appropriately - Eye Eye exam: Present: PERRL, sclera anicteric - Neck Neck exam general surgery: Present: supple, trachea midline. Absent: lymphadenopathy - Respiratory Respiratory exam: Present: CTAB (diminished air entry bilaterally). Absent: wheezes, tachypnea - Cardiovascular Cardiovascular exam: Present: RRR - GI/Abdominal GI/Abdominal exam: Present: normal bowel sounds, soft. Absent: tenderness - Extremities Exam Extremities exam: Absent: pedal edema - Neurological Exam Neurological exam: Present: alert, oriented X3. Absent: facial droop, speech deficit
[2016-12-21 13:01] LABS: Calcium 9.1 mg/dL (8.6-10.8); Potassium 4.4 mEq/L (3.5-4.5)
--- NOTE | 2016-12-21 13:04 | Physician Discharge Referral ---
ExtendedCare Referral Info Transfer To: [facility] Provider in Charge: edgar Provider in Charge after Transfer: PCP Institutional Level of Care: Skilled - Diagnosis (1) Elevated troponin Status: Acute (2) COPD (chronic obstructive pulmonary disease) with emphysema Status: Chronic (3) HTN (hypertension) Status: Chronic - Transfer Medications Prescriptions: Albuterol Neb [Proventil Neb] 2.5 mg IH Q6HR 30 Days Tramadol HCl [Ultram] 25 mg PO QAM #30 tablet Home Medications: Amlodipine [Norvasc] 10 mg PO HS 05/02/16 [History] Aspirin 81 mg PO DAILY 05/02/16 [History] Docusate [Colace] 100 mg PO DAILY 05/02/16 [History] Montelukast [Singulair] 10 mg PO DAILY 05/02/16 [History] Tamsulosin [Flomax] 0.4 mg PO DAILY 05/02/16 [History] Acetaminophen [Tylenol] 975 mg PO DAILY PRN MDD 3000mg 12/19/16 [History] Bisacodyl [Woman's Laxative] 10 mg PO DAILY PRN 12/19/16 [History] Carboxymethylcellulose Sodium [Refresh Celluvisc] 1 each OP QID 12/19/16 [ History] Chlorhexidine Gluconate [Betasept] 15 ml TP DAILY 12/19/16 [History] Ferrous Gluconate 324 mg PO DAILY 12/19/16 [History] Fluticasone Propionate Nasal [Flonase] 1 spray NS BID 12/19/16 [History] LevETIRAcetam [Keppra] 750 mg PO BID 12/19/16 [History] Mag Hydrox/Al Hydrox/Simeth [Maalox Advanced Suspension] 10 ml PO QID PRN [History] Megestrol Acetate [Megace] 10 ml PO BID 12/19/16 [History] Melatonin 6 mg PO HS PRN 12/19/16 [History] Metoprolol Succinate 25 mg PO DAILY 12/19/16 [History] Mirtazapine [Remeron] 30 mg PO HS 12/19/16 [History] Nitroglycerin 0.4 mg SL Q5M PRN 12/19/16 [History] Oxybutynin [Ditropan] 5 mg PO BID 12/19/16 [History] Tiotropium [Spiriva] 18 mcg IH DAILY 12/19/16 [History] Tramadol HCl [Ultram] 50 mg PO HS PRN 12/19/16 [History] Albuterol Neb [Proventil Neb] 2.5 mg IH Q6HR 30 Days 12/21/16 [Rx] GuaiFENesin/Dextromethorphan [Mucinex Dm] 1 each PO BID 7 Days 12/21/16 [Rx] Tramadol HCl [Ultram] 25 mg PO QAM #30 tablet 12/21/16 [Rx] Allergies/Adverse Reactions: Allergies No Known Allergies Allergy (Verified 12/19/16 14:48) - Respiratory Orders Smoking Cessation: Smoking cessation has been advised. For more information, call the [employer] Tobacco Quit Line at 9-003-PDWN-NOW. - Lab Orders Lab Orders: Other (include drug levels w/frequency) (BMp on 12/23/16) - Advance Directives Code Status: Full Code - Mobility Orders Ambulate - Rehabiliation Orders Rehab Potential: Fair Rehab Orders: Evaluation for Physical Therapy, Evaluation for Occupational Therapy - Diet Orders Cardiac (fluid restriction 1.8L/day) CERTIFICATION: I certify that the transfer of the above named patient to an Extended Care Facility is necessary for the continuing treatment of the diagnosis listed. The above information is true and accurate reflection of patient's current condition. Confidential - Redisclosure prohibited without a patient's written consent.
--- NOTE | 2016-12-22 16:07 | Electrocardiograph Report ---
[facility] Test Date: 2016-12-20 Pat Name: PAULINA HIGGINS Department: 112 Room: 2A47 Gender: M [employer]: [id number] : [id number] Requested By: Joy Rodriguez Order Number: [id number] Reading MD: Travis Roldan DO Measurements Intervals [place] Rate: 95 P: 24 [place]: 157 QRS: 87 QRSD: 130 T: 37 QT: 391 QTc: 444 Interpretive Statements SINUS RHYTHM WITH PVCs RIGHT BUNDLE BRANCH BLOCK Electronically Signed On 12-22-16 16:06:30 EST by Travis Roldan DO
== END 2016-12-21 13:22 | DRG 281 ==
LOC: EMEROO 13:13 → SUATTDRO 14:15 → 2ANU 14:15
PROVIDERS: ADMIT Internal Medicine; ATTEND Internal Medicine

== ENCOUNTER 2017-03-09 12:02 | Inpatient (IN) ==
--- NOTE | 2017-03-09 12:20 | Emergency Department Note ---
Disposition Clinical Impression: Non-STEMI (non-ST elevated myocardial infarction) Pneumonia Qualifiers: Pneumonia type: due to unspecified organism Laterality: left Lung location: lower lobe of lung Qualified Code(s): J18.1 - Lobar pneumonia, unspecified organism Disposition: Admitted As Inpatient Condition: Fair [facility]errals: [facility] [Primary Care Provider] - Forms: ED Satisfaction Letter Time of Disposition: 12:25 General Adult HPI - General Chief complaint: ED Chest Pain Stated complaint: NSTEMI Time Seen by Provider: 03/09/17 12:05 Source: patient, EMS Mode of arrival: EMS Limitations: no limitations Nursing Notes Reviewed: Yes Vital Signs Reviewed: Yes - History of Present Illness HPI Narrative: 82-year-old who was admitted to the [place] for pneumonia and found to have increasing troponins. Patient denies any chest pain currently. Patient was treated with vancomycin, Zosyn and Lovenox. Pt Subjective Complaint: Patient was seen for an exacerbation of COPD Onset (ago): day(s) - Related Data Home Medications Medication Instructions Recorded Confirmed Amlodipine [Norvasc] 10 mg PO HS 05/02/16 12/19/16 Aspirin 81 mg PO DAILY 05/02/16 12/19/16 Docusate [Colace] 100 mg PO DAILY 05/02/16 12/19/16 Montelukast [Singulair] 10 mg PO DAILY 05/02/16 12/19/16 Tamsulosin [Flomax] 0.4 mg PO DAILY 05/02/16 12/19/16 Acetaminophen [Tylenol] 975 mg PO DAILY PRN MDD 3000mg 12/19/16 12/19/16 Bisacodyl [Woman's Laxative] 10 mg PO DAILY PRN 12/19/16 12/19/16 Carboxymethylcellulose Sodium 1 each OP QID 12/19/16 12/19/16 [Refresh Celluvisc] Chlorhexidine Gluconate [Betasept] 15 ml TP DAILY 12/19/16 12/19/16 Ferrous Gluconate 324 mg PO DAILY 12/19/16 12/19/16 Fluticasone Propionate Nasal 1 spray NS BID 12/19/16 12/19/16 [Flonase] LevETIRAcetam [Keppra] 750 mg PO BID 12/19/16 12/19/16 Mag Hydrox/Al Hydrox/Simeth 10 ml PO QID PRN 12/19/16 12/19/16 [Maalox Advanced Suspension] Megestrol Acetate [Megace] 10 ml PO BID 12/19/16 12/19/16 Melatonin 6 mg PO HS PRN 12/19/16 12/19/16 Metoprolol Succinate 25 mg PO DAILY 12/19/16 12/19/16 Mirtazapine [Remeron] 30 mg PO HS 12/19/16 12/19/16 Nitroglycerin 0.4 mg SL Q5M PRN 12/19/16 12/19/16 Oxybutynin [Ditropan] 5 mg PO BID 12/19/16 12/19/16 Tiotropium [Spiriva] 18 mcg IH DAILY 12/19/16 12/19/16 Tramadol HCl [Ultram] 50 mg PO HS PRN 12/19/16 12/19/16 Previous Rx's Medication Instructions Recorded Albuterol Neb [Proventil Neb] 2.5 mg IH Q6HR 30 Days 12/21/16 GuaiFENesin/Dextromethorphan 1 each PO BID 7 Days 12/21/16 [Mucinex Dm] Tramadol HCl [Ultram] 25 mg PO QAM #30 tablet 12/21/16 Erythromycin OPTH Oint 1 appl RIGHT EYE ONCE #1 tube 02/02/17 Allergies Allergy/AdvReac Type Severity Reaction Status Date / Time No Known Allergies Allergy Verified 12/19/16 14:48 All systems ED: reviewed and negative except as stated. Constitutional: Denies: fever, chills, weakness, weight change Eyes: Denies: eye pain, eye discharge, vision change ENT ED: Denies: ear pain, throat pain, dental pain, hearing loss, epistaxis, congestion, dysphagia Cardiovascular: Denies: chest pain, palpitations, dyspnea on exertion, edema, syncope Respiratory: Reports: dyspnea, wheezes. Denies: cough, hemoptysis, stridor Gastrointestinal: Denies: abdominal pain, nausea, vomiting, diarrhea, constipation, hematemesis, melena, hematochezia Genitourinary: Denies: urgency, dysuria, frequency, hematuria Musculoskeletal: Denies: back pain, neck pain, arthralgia, myalgia Integumentary: Denies: rash, abrasion, lesions Neurological: Denies: headache, weakness, numbness, paresthesias, confusion, abnormal gait, vertigo Psychiatric: Denies: anxiety, depression, suicidal thoughts, homicidal thoughts , auditory hallucinations, visual hallucinations Endocrine: Denies: fatigue Hematological/Lymphatic: Denies: easy bleeding, easy bruising Allergic/Immunologic: Denies: facial swelling, urticaria Past Medical History - Past Medical History Medical history: Reports: COPD, hypertension, other Psychiatric history: Reports: no psych history - Social History Smoking Status: Former smoker Smokeless Tobacco Status: No Alcohol use: Reports: rarely Drug use: Reports: none Physical Exam - General Limitations: no limitations General appearance: alert, in no apparent distress - Head Head exam: atraumatic - Eye Eye exam: Present: normal appearance, PERRL, EOMI - ENT ENT exam: normal exam, normal oropharynx, mucous membranes moist - Neck Neck exam: Present: normal inspection, full ROM, trachea midline - Chest Chest inspection: Present: normal inspection, symmetric chest wall rise - Respiratory Respiratory exam: Present: normal lung sounds bilaterally - Cardiovascular Cardiovascular exam: Present: regular rate, normal rhythm, normal heart sounds - Abdominal Exam Abdominal exam: Present: soft, Non-Tender. Absent: tenderness, distention, guarding, rebound, rigidity - Extremities Exam Extremities exam: Present: normal inspection, full ROM. Absent: tenderness, pedal edema - Expanded Lower Extremity Exam Neurovascular/Tendon exam: Absent: motor deficit, sensory deficit, tendon deficit Gait: observed and normal - Back Exam Back exam: Present: normal inspection, full ROM. Absent: tenderness - Neurological Exam Neurological exam: Present: alert, oriented X3 - Psychiatric Psychiatric exam: Present: normal affect, normal mood - Skin Skin exam: Present: warm, dry, intact, normal color Course - Reevaluation(s) Reevaluation #1: 82-year-old male with history COPD he was admitted to the [place] for COPD exacerbation and pneumonia who has had trending upward troponins over the last couple of days. Patient was initially resistant to being transferred but now had consented. He was treated with Zosyn and vancomycin prior to arrival. Patient also received Lovenox. Time: 12:26 - Consultations Consultation #1: Discussed with juan a Wilson. Time: 12:44 Consultation #2: Discussed with Time: 13:16 Vital Signs Temperature 97.6 F 03/09/17 12:06 Pulse Rate 102 03/09/17 12:06 Respiratory Rate 18 03/09/17 12:06 Blood Pressure 119/71 03/09/17 12:06 O2 Sat by Pulse Oximetry 92 03/09/17 12:06 Temperature 97.6 F 03/09/17 12:06 Pulse Rate 97 03/09/17 13:12 Respiratory Rate 18 03/09/17 13:12 Blood Pressure 108/70 03/09/17 13:12 O2 Sat by Pulse Oximetry 94 03/09/17 13:12 Oxygen Delivery Oxygen Delivery Nasal Cannula Medical Decision Making - Lab Data Lab results reviewed: Yes I reviewed the patient's lab results. Lab results narrative: I reviewed labs from the [place] white count on 03/08 2017 was 8.7 hemoglobin was 11 for hematocrit was 36.3 troponins the initial troponin on the was 0.058, later the troponin was 0.068, and the troponin today was 0.089. A blood gas pH of 747 PCO2 of 29 PaO2 of 62. Echocardiogram was done shows ventricular hypertrophy with an EF of 40-45% with mild global hypokinesis. Chest x-ray shows increasing airspace disease a left lung base most consistent with worsening pneumonia aspiration pneumonia should be considered - EKG Data EKG #1 EKG attestation: Yes I reviewed and interpreted this EKG. Rate: normal Rhythm: A.Fib, PVC's Interpretation: no acute changes
--- NOTE | 2017-03-09 13:33 | Internal Med History&Physical ---
Date of Encounter: 03/09/17 Time of Encounter: 13:27 Assessment and Plan (1) Elevated troponin Current visit: No Status: Acute mildly elevated troponin possible in the setting of pneumonia denies any chest pain, no palpitations. will trend tropx3, EKG with no ischemic changes. trop at CT was elevated at 0.08, 0.06, 0.05 Patient was deemed not candidate for LHC due to SDH, JO-ANN and thrombocytopenia on his last admission on 12/12. He was recommended nuclear stress test; however, patient declined it. He agreed with medical management and echocardiogram which showed LVEF 60%, moderate LVH. mild diastolic dysfunction. he has h/o stent placed on 09/2014 however his plavix was stopped due to SDH on consult cardio prn (2) H/O traumatic subdural hematoma Current visit: Yes Status: Acute in April and has instability with his gait. his plavix was held for the SDH (3) COPD (chronic obstructive pulmonary disease) with emphysema Current visit: No Status: Chronic stable,willcontinue home meds Qualifiers: Emphysema type: unspecified Qualified Code(s): J43.9 - Emphysema, unspecified (4) HTN (hypertension) Current visit: No Status: Chronic Qualifiers: Hypertension type: essential hypertension Qualified Code(s): I10 - Essential (primary) hypertension (5) Pneumonia Current visit: Yes Status: Acute will continue IV vanco and zosyn for now as he came from CT> cxr done at CT shows worsening left lower zone pnuemonia. he was getting vanco and zosyn there which was just strated for 1 day. will send for sputum gram stain and culture. will consult speech for possible aspiration risk. Qualifiers: Pneumonia type: due to unspecified organism Laterality: left Lung location: lower lobe of lung Qualified Code(s): J18.1 - Lobar pneumonia, unspecified organism Internal Medicine - H&P: HPI [facility] Ad[facility] Hospital to Hospital Transfer Plans for Post Hospital Care: Transfer Inp Rehab Fac History of present illness: Mr. Mckeon is a 82 year old male with past medical history of SDH from a fall in , COPD and HTN who was transferred from [place] ED due to elevated troponin. HE lives [place] and has been having chronic cough and sob. As pe rthe son, he was just started on IV antibiotics for peumonia. HE denies any chest pain at this time. [facility] HE was admitted for chestpain o nov when Patient was deemed not candidate for LHC due to SDH, JO-ANN and thrombocytopenia. He was recommended nuclear stress test; however, patient declined it. He agreed with medical management and echocardiogram which showed LVEF 60%, moderate LVH. mild diastolic dysfunction. he reports mild sob but the son says he always has some sob due to emphysema. he denies any fever, n/v or confusion. he was given some sedative before coming to the ED so he looks somewhat drowsy. Past Med Surg Social Fam HX - Past Medical History Medical history: COPD, hypertension, other Psychiatric history: no psych history - Social History Smoking Status: Former smoker Smokeless Tobacco Status: No Alcohol use: rarely Drug use: none Internal Medicine - H&P: Meds Amlodipine [Norvasc] 10 mg PO HS 05/02/16 [History] Aspirin 81 mg PO DAILY 05/02/16 [History] Docusate [Colace] 100 mg PO DAILY 05/02/16 [History] Montelukast [Singulair] 10 mg PO DAILY 05/02/16 [History] Tamsulosin [Flomax] 0.4 mg PO DAILY 05/02/16 [History] Acetaminophen [Tylenol] 975 mg PO DAILY PRN MDD 3000mg 12/19/16 [History] Bisacodyl [Woman's Laxative] 10 mg PO DAILY PRN 12/19/16 [History] Carboxymethylcellulose Sodium [Refresh Celluvisc] 1 drop OP QID 12/19/16 [ History] Chlorhexidine Gluconate [Betasept] 15 ml TP DAILY 12/19/16 [History] Ferrous Gluconate 324 mg PO DAILY 12/19/16 [History] Fluticasone Propionate Nasal [Flonase] 1 spray NS BID 12/19/16 [History] LevETIRAcetam [Keppra] 750 mg PO BID 12/19/16 [History] Mag Hydrox/Al Hydrox/Simeth [Maalox Advanced Suspension] 10 ml PO QID PRN [History] Megestrol Acetate [Megace] 10 ml PO BID 12/19/16 [History] Melatonin 6 mg PO HS PRN 12/19/16 [History] Metoprolol Succinate 25 mg PO DAILY 12/19/16 [History] Mirtazapine [Remeron] 30 mg PO HS 12/19/16 [History] Nitroglycerin 0.4 mg SL Q5M PRN 12/19/16 [History] Oxybutynin [Ditropan] 5 mg PO BID 12/19/16 [History] Tiotropium [Spiriva] 1 cap IH DAILY 12/19/16 [History] Tramadol HCl [Ultram] 50 mg PO HS PRN 12/19/16 [History] Albuterol Neb [Proventil Neb] 2.5 mg IH Q6HR 30 Days 12/21/16 [Rx] Tramadol HCl [Ultram] 25 mg PO QAM #30 tablet 12/21/16 [Rx] Erythromycin OPTH Oint 1 appl RIGHT EYE ONCE #1 tube 02/02/17 [Rx] Allergies No Known Allergies Allergy (Verified 12/19/16 14:48) All Systems PM: A 10-system review of systems was performed and is negative for pertinent findings except as documented above in the HPI. - Constitutional Vitals: Temp Pulse Resp BP Pulse Ox 97.6 F 97 18 108/70 94 03/09/17 12:06 03/09/17 13:12 03/09/17 13:12 03/09/17 13:12 03/09/17 13:12 General appearance: Present: A&O X 3, no acute distress Exam: Neck supple. Chest Bilateral occasional crepitation, coarse breath sounds. CVS S1-S2, no murmurs rubs or gallops. Abdomen soft, nontender, bowel sounds are present. Extremities no edema. Neuro no focal deficits, alert awake and oriented.
[2017-03-09] MEDS ORDERED: Naloxone 0.4 MG/ML INJ IVP PRN (13:39)
[2017-03-09] MEDS ORDERED: Nitroglycerin 0.4 MG TAB.SUBL SL PRN (13:41)
--- NOTE | 2017-03-09 14:31 | Cardiology Consult Note ---
Date of Encounter: 03/09/17 Time of Encounter: 14:00 Assessment and Plan (1) Elevated troponin Current Visit: Yes Status: Acute Mild troponin elevation in the setting of acute PNA and JO-ANN on CKD; likely secondary to demand ischemia. He is chest pain free. Denies angina, chest pain or discomfort. ECG unchanged from previous. Troponin at the [facility]: 0.058, 0.068, 0.089. Initial troponin 0.12. Upon review, it appears troponin levels are chronically elevated. Cardiac rehab is not warranted at this time. Echocardiogram reportedly completed at [facility] (no official report); EF was stated to be 40-45% with mild global hypokinesis. Prior TTE 2016: EF 60-65%, moderate cLVH, mild LVDD, mild AR, no PH, normal wall motion. Patient/son prefer to start with medical management in the setting of PNA. He would be high risk for LHC due to CKD, thrombocytopenia, and hx of SDH (April 2016). Continue asa and betablocker. Will start statin. Continue to cycle troponin. Discussed with Dr. Mckeon; will check limited echocardiogram to evaluate EF. (2) Pneumonia Current Visit: Yes Status: Acute On IV vancomycin and Zosyn from [facility]. Reportedly failed outpatient treatment. CXR: increasing airspace disease to left lung base consistent with pnemonia, possible aspiration pneumonia. Mgmt per primary service. Qualifiers: Pneumonia type: due to unspecified organism Laterality: left Lung location: lower lobe of lung Qualified Code(s): J18.1 - Lobar pneumonia, unspecified organism (3) JO-ANN (acute kidney injury) Current Visit: Yes Status: Acute SCr 1.80; elevated from baseline, 1.4-1.5 Defer further mgmt to primary service. Avoid nephrotoxins. Discussion w patient/family: The assessment and plan as outlined above was discussed with the patient and/or family members who expressed understanding and agreement. All questions were answered. Thank you for involving us in the care of your patient. Please call with any questions. The patient will be discussed and reviewed with Dr. Mckeon; changes to be made accordingly. History of Present Illness Consult date: 03/09/17 Requesting physician: Tod Aldridge Consult reason: Elevated troponin Chief complaint: Cough, malaise History of present illness: Mr. Mckeon is a 82 year old male with PMH significant for BPH, COPD, HTN, anemia, CAD s/p PCI, and SDH (April 2016) who presented as transfer from inpatient [facility] due to increasing troponin level. He resides at the [facility] and was admitted to the inpatient facility due to worsening pneumonia that failed outpatient therapy. Patient/son report 1 week history of productive cough, fatigue, weakness, and generalized malaise; his son tells me he was initially treated for influenza, however swab came back negative. He was recently hospitalized in November of this year with similar symptoms; at that time, patient and son both declined stress and LHC. Troponin at the [facility]: 03/08/17 0.058, 0.068 and today was 0.089. Prior CV testing: TTE 12/20/16: EF 60-65%, moderate cLVH, mild LVDD, mild AR, no PH, normal wall motion. LHC 10/14/14: s/p successful BMS mLAD; 20% pLAD, 40-50% diagonals stenosis ; 30% mLCx, 70% OM1 (small vessel), and 40% mRCA (small vessel). Past Med Surg Social Fam HX - Past Medical History Attestation: Yes The following information was validated with the patient. Source: patient, obtained from family Medical history: COPD, coronary artery disease, hypertension, other (D April 2016) Psychiatric history: anxiety, depression - Past Surgical History Surgical History: angioplasty/stent - Social History Smoking Status: Former smoker Smokeless Tobacco Status: No Alcohol use: none Drug use: none Current living situation: [facility] Activity Level: Uses cane/walker, Mostly sedentary Medications and Allergies Amlodipine [Norvasc] 10 mg PO HS 05/02/16 [History] Aspirin 81 mg PO DAILY 05/02/16 [History] Docusate [Colace] 100 mg PO DAILY 05/02/16 [History] Montelukast [Singulair] 10 mg PO DAILY 05/02/16 [History] Tamsulosin [Flomax] 0.4 mg PO DAILY 05/02/16 [History] Acetaminophen [Tylenol] 975 mg PO DAILY PRN MDD 3000mg 12/19/16 [History] Bisacodyl [Woman's Laxative] 10 mg PO DAILY PRN 12/19/16 [History] Carboxymethylcellulose Sodium [Refresh Celluvisc] 1 drop OP QID 12/19/16 [ History] Chlorhexidine Gluconate [Betasept] 15 ml TP DAILY 12/19/16 [History] Ferrous Gluconate 324 mg PO DAILY 12/19/16 [History] Fluticasone Propionate Nasal [Flonase] 1 spray NS BID 12/19/16 [History] LevETIRAcetam [Keppra] 750 mg PO BID 12/19/16 [History] Mag Hydrox/Al Hydrox/Simeth [Maalox Advanced Suspension] 10 ml PO QID PRN [History] Megestrol Acetate [Megace] 10 ml PO BID 12/19/16 [History] Melatonin 6 mg PO HS PRN 12/19/16 [History] Metoprolol Succinate 25 mg PO DAILY 12/19/16 [History] Mirtazapine [Remeron] 30 mg PO HS 12/19/16 [History] Nitroglycerin 0.4 mg SL Q5M PRN 12/19/16 [History] Oxybutynin [Ditropan] 5 mg PO BID 12/19/16 [History] Tiotropium [Spiriva] 1 cap IH DAILY 12/19/16 [History] Tramadol HCl [Ultram] 50 mg PO HS PRN 12/19/16 [History] Albuterol Neb [Proventil Neb] 2.5 mg IH Q6HR 30 Days 12/21/16 [Rx] Tramadol HCl [Ultram] 25 mg PO QAM #30 tablet 12/21/16 [Rx] Erythromycin OPTH Oint 1 appl RIGHT EYE ONCE #1 tube 02/02/17 [Rx] Allergies No Known Allergies Allergy (Verified 12/19/16 14:48) All Systems Review: A 10-system review of systems was performed and is negative for pertinent findings except as documented above in the HPI. - Cardiovascular Cardiovascular: as per HPI Physical Examination Vital Signs, Last 4 Hours Temp Resp BP 03/09/17 13:45 97.6 F 18 108/70 General: Conversant, Other (frail) HEENT: Atraumatic, Normocephaly Results 03/09/17 15:02 Lab Results 03/09/17 13:49 Troponin I 0.14 H* Active Medications Amlodipine Besylate (Norvasc) 10 mg PO HS ANUJ PRN Reason: Protocol Stop: 09/08/17 21:01 Artificial Tears (Akwa Tears) 1 drop OP QID [facility] Stop: 09/08/17 17:01 Aspirin (Aspirin) 81 mg PO DAILY [facility] Stop: 09/09/17 09:01 Docusate Sodium (Colace) 100 mg PO DAILY ANUJ PRN Reason: Protocol Stop: 09/09/17 09:01 Ferrous Sulfate (Ferrous Sulfate) 325 mg PO DAILY [facility] Stop: 09/09/17 09:01 Guaifenesin (Mucinex Dm) 1 each PO BID [facility] Stop: 09/08/17 21:01 Piperacillin Sod/Tazobactam (Sod 3.375 gm/ Dextrose) 100 mls @ 25 mls/hr IVPB Q8HR ANUJ PRN Reason: Protocol Stop: 09/08/17 16:01 Vancomycin HCl 1,000 mg/ (Dextrose) 250 mls @ 167 mls/hr IVPB Q12HR ANUJ PRN Reason: Protocol Stop: 09/08/17 18:01 Levetiracetam (Keppra) 750 mg PO BID [facility] Stop: 09/08/17 13:46 Megestrol Acetate (Megace) 400 mg PO BID [facility] PRN Reason: Protocol Stop: 09/08/17 21:01 Metoprolol Succinate (Toprol Xl) 25 mg PO DAILY [facility] Stop: 09/08/17 13:46 Naloxone HCl (Narcan) 0.4 mg IVP Q2MIN PRN PRN Reason: Opioid Reversal Stop: 09/08/17 13:40 Nitroglycerin (Nitroglycerin) 0.4 mg SL Q5M PRN PRN Reason: Chest Pain Stop: 09/08/17 13:42 Oxybutynin Chloride (Ditropan) 5 mg PO BID [facility] PRN Reason: Protocol Stop: 09/08/17 21:01 Tamsulosin HCl (Flomax) 0.4 mg PO DAILY [facility] PRN Reason: Protocol Stop: 09/09/17 09:01 Tiotropium Stanton (Spiriva) 18 mcg IH DAILY [facility] PRN Reason: Protocol Stop: 09/09/17 09:01 - Imaging and Cardiology Echo: report reviewed Cardiac cath: report reviewed - EKG Interpretation EKG results cardiology: personally reviewed Consult Discharge Plan - Plan [facility] [Primary Care Provider] -
[2017-03-09 15:13] LABS: Calcium 8.9 mg/dL (8.6-10.8); Magnesium 2.1 mg/dL (1.6-2.6); Potassium 3.9 mEq/L (3.5-4.5)
[2017-03-09] MEDS: levETIRAcetam 250 MG TABLET PO SCH ×2 (15:15→21:35)
[2017-03-09] MEDS: Metoprolol XL (24 HR) Succ 25 MG TAB.ER.24H PO SCH (15:16)
[2017-03-09] MEDS ORDERED: Vancomycin 1,250 MG in D5% in Water 250 ML IVPB SCH (16:00)
[2017-03-09] MEDS: Piperacillin/Tazobactam 3.375 GM in D5% in Water (Mini-Bag+) 100 ML IVPB SCH ×2 (17:14→23:47)
--- NOTE | 2017-03-09 17:45 | Electrocardiograph Report ---
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
[2017-03-09] MEDS ORDERED: Vancomycin 1,000 MG in D5% in Water 250 ML IVPB SCH (18:00)
[2017-03-09] MEDS: Vancomycin 1,250 MG in D5% in Water 250 ML IVPB SCH (18:25)
[2017-03-09] MEDS: Artificial Tears SOLN 15 ML BOTTLE OP SCH ×2 (18:26→21:35)
[2017-03-09] MEDS: GuaiFENesin/Dextromethorphan TABLET PO SCH (21:34)
[2017-03-09] MEDS: amLODIPine 5 MG TABLET PO SCH (21:36)
[2017-03-09] MEDS: Megestrol Acetate 400 MG/10 ML UDC PO SCH (21:36)
[2017-03-10 00:50] LABS: Basophils % 0.2 %; Eosinophils % 1.4 %; Hematocrit 31.9 % (37.5-50.1); Hemoglobin 10.2 g/dL (12.9-16.9); Immature Granulocytes % 0.3 % (0-4); Lymphocytes % 12.3 %; Mean Corpuscular Hemoglobin 30.3 pg (28.0-33.3); Mean Corpuscular Volume 94.7 fL (83.0-100.0); Mean Platelet Volume 10.8 fL (9.4-12.4); Monocytes % 6.6 %; Platelet Count 125 K/mcL (140-400); Red Blood Count 3.37 M/mcL (4.19-5.50); Red Cell Distribution Width 13.8 % (11.5-14.5); Segmented Neutrophils % 79.2 %
[2017-03-10 00:51] LABS: Eosinophils # 0.1 K/mcL (0.0-0.6); Lymphocytes # 0.8 K/mcL (0.6-4.6); Monocytes # 0.4 K/mcL (0.0-1.3); Neutrophils # 5.1 K/mcL (1.6-8.9)
[2017-03-10 01:06] LABS: Calcium 8.9 mg/dL (8.6-10.8); Magnesium 2.2 mg/dL (1.6-2.6); Phosphorous 3.8 mg/dL (2.3-4.7); Potassium 3.9 mEq/L (3.5-4.5)
[2017-03-10] MEDS: Tiotropium 18 MCG inhalation IH SCH (08:11)
--- NOTE | 2017-03-10 08:15 | ECHO - Doppler Report ---
Limited Echocardiogram Name: Kiet Mckeon Date of Study: 03/09/2017 Date: 1935 Ht: 70.0 in Medical Record#: [id number] Age: 82 Wt: 180.0 lb Gender: Male BSA: 2 Order #: [id number] Location: [facility] Room #: 2A26 Reading Physician: Ernesto Moss MD, [facility] Multifocal Lens Assembler: Tiffany Briggs Ordering Physician: Lisseth Prieto CNP Primary Physician: [facility] Indications: Elevated troponin Impressions: LV systolic function was not well assessed due to frequent ectopy (PACs and PVCs). Globally, LV function appears mildly decreased with estimated LVEF 40-45%. Moderate concentric left ventricular hypertrophy. Normal right ventricular size and function. Valvular function was not assessed on this limited study. Left Ventricular Wall Motion: Rest Echo Findings The apex, apical inferior, mid inferior, basal inferior, apical anterior, mid anterior, basal anterior, apical septal, mid inferior septal, basal inferior septal, apical lateral, mid anterior lateral, basal anterior lateral, mid anterior septal, mid inferior lateral, basal anterior septal and basal inferior lateral chawla were hypokinetic. Findings: Study Quality * Suboptimal echo windows. ECG Findings * Sinus rhythm with PACs and PVCs. Left Ventricle * LV systolic function was not well assessed due to frequent ectopy (PACs and PVCs). Globally, LV function appears mildly decreased with estimated LVEF 40-45%. * Normal LV chamber size, wall thickness and function. * Moderate concentric left ventricular hypertrophy. Right Ventricle * Normal right ventricular size and function. Left Atrium * Normal left atrial size. Right Atrium * Normal right atrial size. Aorta * Normally sized aortic root. Pericardium * There is no pericardial effusion present. History Hypertension History of CAD/PTCA Myocardial Infarction 12/20/2016 a Previous Echo was performed. Measurements: BP: 122/ 73 2D Normal Values RVIDd: 2.80 cm IVSd: 1.60 cm 0.6 - 1.0 cm LVIDd: 5.00 cm 3.7 - 5.6 cm LVPWd: 1.60 cm 0.6 - 1.1 cm LVIDs: 3.80 cm 1.5 - 3.6 cm AO: 3.90 cm < 4.0 cm LA: 3.60 cm 2.0 - 4.0cm LA volume: 56 Updated by Ernesto Moss MD, [facility] on 03/10/2017 8:09:23 AM electronically signed on 03/10/2017 8:09:49 AM with status of Final Wall Motion [place]: 1=Normal, 2=Hypokinesis, 3=Akinesis, 4=Dyskinesis, 5=Aneurysmal, 6=Hyperkinetic, X=Not Visualized (Blank)=Missing
--- NOTE | 2017-03-10 08:20 | Event Note ---
Date of Encounter: 03/10/17 Time of Encounter: 08:19 - Cardiology Event Note Echocardiogram reportedly completed at [facility] (no official report); EF was stated to be 40-45% with mild global hypokinesis. Prior TTE 2016: EF 60-65%, moderate cLVH, mild LVDD, mild AR, no PH, normal wall motion. Echo this admission resulted--EF 40-45%, similar to reported [facility] echo in setting of JO-ANN, PNA, multiple comorbidities. Troponins remain flat, adynamic--0.14, 0.10 , 0.11. Cardiology signing off. Reconsult PRN. Schedule outpt follow-up in 1-2 weeks.
[2017-03-10] MEDS: Metoprolol XL (24 HR) Succ 25 MG TAB.ER.24H PO SCH (09:28)
[2017-03-10] MEDS: GuaiFENesin/Dextromethorphan TABLET PO SCH ×2 (09:28→20:49)
[2017-03-10] MEDS: Piperacillin/Tazobactam 3.375 GM in D5% in Water (Mini-Bag+) 100 ML IVPB SCH (09:28)
[2017-03-10] MEDS: Aspirin 81 MG TAB.CHEW PO SCH (09:28)
[2017-03-10] MEDS: levETIRAcetam 250 MG TABLET PO SCH ×2 (09:28→20:49)
[2017-03-10] MEDS: Megestrol Acetate 400 MG/10 ML UDC PO SCH ×2 (09:28→20:49)
[2017-03-10] MEDS: Artificial Tears SOLN 15 ML BOTTLE OP SCH ×4 (09:29→20:49)
[2017-03-10] MEDS ORDERED: Cefepime HCl 1,000 MG in D5% in Water (Mini-Bag+) 100 ML IVPB SCH (16:00)
[2017-03-10] MEDS ORDERED: GI Cocktail 40 ML EACH PO ONE (16:34)
--- NOTE | 2017-03-10 16:34 | Internal Med Progress Note ---
<Mark Camilo - Last Filed: 03/10/17 16:32> Date of Encounter: 03/10/17 Time of Encounter: 16:34 - Assessment and plan (1) Chest pain Current Visit: Yes Status: Acute Assessment and plan: Resolved. Patient does have a history of coronary artery disease and has had PCI in the past. He was on Plavix however this was stopped due to a subdural hematoma. Thus far his troponins have been flat and a dynamic. I did review an EKG. No acute changes. He does have some bigeminy and a right bundle branch block however he has had this on old EKGs and telemetry from the [facility]. Echocardiogram does reveal an ejection fraction of 40-45%. He is at high risk for left heart catheter given his multiple medical conditions. His troponins have been flat and a dynamic. Will treat medically per cardiology. I will need a follow-up with them in 1-2 weeks. We will give the patient on telemetry. Since he is having another episode chest pain this afternoon we will get a repeat troponin as well. However given the description I think this is more than likely dyspepsia we will give him a trial of a GI cocktail as well. (2) Pneumonia Current Visit: Yes Status: Acute Assessment and plan: Patient was on vancomycin and Zosyn. This would be day 3 of antibiotics. We will change Zosyn to cefepime given his acute kidney injury as there is higher risk for injury with combination of vancomycin and Zosyn. Patient is comfortable and has difficulty breathing at this time. Does not look to be toxic at this time. (3) History of subdural hematoma Current Visit: Yes Status: Acute (4) Confusion Current Visit: Yes Status: Acute Assessment and plan: I am unsure of the patient's baseline. He is alert through the entire interview process. The neuro exam is somewhat limited to by his confusion. However I do suspect that he has some confusion at baseline. I suspect some underlying dementia. Additionally he has had a recent traumatic brain injury with a subdural hematoma. We will discuss with family when they are available. (5) Dyspepsia Current Visit: Yes Status: Acute Assessment and plan: GI cocktail. (6) Systolic heart failure Current Visit: Yes Status: Acute Assessment and plan: Ejection fraction 40-45%. Prior ADAN had shown an ejection fraction of 60%. Patient is on a beta penelope at this time. Will hold off on JOSELINE inhibitor as he has an acute kidney injury. (7) Coronary artery disease Current Visit: Yes Status: Acute Assessment and plan: As stated above. Continue Lipitor and aspirin. No Plavix with recent history of subdural hematoma. (8) Bradycardia Current Visit: Yes Status: Acute Assessment and plan: Transient and resolved. Occurred after he received some nitroglycerin. If reoccurs will consider lowering dose of beta penelope. Currently his rate is in the 80s to 90s. (9) Bigeminy Current Visit: Yes Status: Acute Assessment and plan: Normal electrolytes. He is also on a beta penelope. Continue telemetry. (10) DVT prophylaxis Current Visit: Yes Status: Acute Assessment and plan: Patient has EPCDs - Subjective Interval history: No major events overnight. Patient today patient has some confusion. today the patient is a poor historian. He is quite confused he tells me that we are in a gas station and that the years 1980. He does complain of chest pain on the right side. However when he points to this he points to the epigastrium area and states that it radiates up and into the neck. Denies sour taste in his mouth. During my interview the patient had relief of his chest pain. Of note nursing staff and given him a nitroglycerin tablet prior to my arrival. He denies any further complaints or concerns at this time. He denies any dyspnea. Does complain of productive cough but cannot describe the sputum. He has no further complaints or concerns at this time. - Constitutional Vitals: Temp Pulse Resp BP Pulse Ox 98.8 F 92 20 127/73 95 03/10/17 11:37 03/10/17 16:11 03/10/17 16:11 03/10/17 16:11 03/10/17 16:11 General appearance: Present: no acute distress Exam: General: This is a well-developed well-nourished 82-year-old male that he is currently alert but oriented only to self at this time. Lying in bed appears to be comfortable and in no acute distress at this time. HEENT: The head is normocephalic and atraumatic. Anicteric sclera, pupils equally round reactive light accommodation. Normal external appearance of ears nose and eyes. Moist mucous membranes. Edentulous. Neck is supple without mass or thyromegaly. No cervical or supraclavicular lymphadenopathy noted by me. Heart: Heart is regular rate and rhythm without murmurs rubs or gallops. No JVD. Appears to be euvolemic on exam. Lungs: He does have some crackles in the left mid lung field. Normal effort of breathing. Abdomen: Abdomen is soft, nondistended, nontender to palpation. Musculoskeletal: Grossly normal for age no reversible is noted. Extremities: There is no clubbing, cyanosis or edema. Integument: No rashes or lesions noted on exposed skin. Internal Medicine: Result - Labs CBC & Chem 7: 03/10/17 00:43 03/10/17 00:43 Labs: Short CBC 03/10/17 Range/Units 00:43 WBC 6.5 (4.3-11.1) K/mcL Hgb 10.2 L (12.9-16.9) g/dL Hct 31.9 L (37.5-50.1) % Plt Count 125 L (140-400) K/mcL Neutrophils # 5.1 (1.6-8.9) K/mcL BMP 03/10/17 00:43 Sodium 141 Potassium 3.9 Chloride 104 Carbon Dioxide 29 BUN 25 Creatinine 1.69 H Glucose 96 Calcium 8.9 Cardiac Enzymes 03/09/17 03/10/17 Range/Units 19:26 00:43 Troponin I 0.11 H* 0.10 H* (0-0.03) ng/mL Consult Discharge Plan - Plan [facility]errals: [facility] [Primary Care Provider] - <Michael Segura - Last Filed: 03/10/17 17:43> Date of Encounter: 03/10/17 - Constitutional Vitals: Temp Pulse Resp BP Pulse Ox 98.8 F 92 20 127/73 95 03/10/17 11:37 03/10/17 16:11 03/10/17 16:11 03/10/17 16:11 03/10/17 16:11 Internal Medicine: Result - Labs CBC & Chem 7: 03/10/17 00:43 03/10/17 00:43 Labs: Short CBC 03/10/17 Range/Units 00:43 WBC 6.5 (4.3-11.1) K/mcL Hgb 10.2 L (12.9-16.9) g/dL Hct 31.9 L (37.5-50.1) % Plt Count 125 L (140-400) K/mcL Neutrophils # 5.1 (1.6-8.9) K/mcL BMP 03/10/17 00:43 Sodium 141 Potassium 3.9 Chloride 104 Carbon Dioxide 29 BUN 25 Creatinine 1.69 H Glucose 96 Calcium 8.9 Cardiac Enzymes 03/09/17 03/10/17 03/10/17 Range/Units 19:26 00:43 16:23 Troponin I 0.11 H* 0.10 H* 0.09 H* (0-0.03) ng/mL - Attending Attestation I examined this patient and my medical decision-making was reviewed with the SOCIAL SERVICES COORDINATOR/PA/Advanced Practice Nurse/Resident Physician. I agree with the documented findings, disposition and treatment plan as described except to the extent set forth below. Agree with dr Camilo. Continue telemetry monitoring. IV Maxipime.
[2017-03-10] MEDS: Cefepime HCl 1,000 MG in D5% in Water (Mini-Bag+) 100 ML IVPB SCH (17:53)
[2017-03-10] MEDS: Vancomycin 1,250 MG in D5% in Water 250 ML IVPB SCH (18:26)
[2017-03-10] MEDS: amLODIPine 5 MG TABLET PO SCH (20:49)
[2017-03-11 05:52] LABS: Basophils % 0.2 %; Eosinophils # 0.2 K/mcL (0.0-0.6); Eosinophils % 2.9 %; Hemoglobin 10.2 g/dL (12.9-16.9); Immature Granulocytes % 0.8 % (0-4); Lymphocytes # 0.5 K/mcL (0.6-4.6); Lymphocytes % 9.9 %; Mean Corpuscular HGB Conc 31.9 g/dL (31.6-35.5); Mean Corpuscular Hemoglobin 30.4 pg (28.0-33.3); Mean Corpuscular Volume 95.2 fL (83.0-100.0); Mean Platelet Volume 11.6 fL (9.4-12.4); Monocytes # 0.2 K/mcL (0.0-1.3); Monocytes % 3.4 %; Neutrophils # 4.3 K/mcL (1.6-8.9); Platelet Count 101 K/mcL (140-400); Red Blood Count 3.36 M/mcL (4.19-5.50); Red Cell Distribution Width 13.5 % (11.5-14.5); Segmented Neutrophils % 82.8 %
[2017-03-11 06:07] LABS: Calcium 8.9 mg/dL (8.6-10.8); Potassium 4.2 mEq/L (3.5-4.5)
[2017-03-11] MEDS: Tiotropium 18 MCG inhalation IH SCH (08:35)
[2017-03-11] MEDS ORDERED: Metoprolol XL (24 HR) Succ 25 MG TAB.ER.24H PO SCH (09:00)
[2017-03-11] MEDS: Megestrol Acetate 400 MG/10 ML UDC PO SCH ×2 (10:11→20:09)
[2017-03-11] MEDS: levETIRAcetam 250 MG TABLET PO SCH ×2 (10:11→20:09)
[2017-03-11] MEDS: Artificial Tears SOLN 15 ML BOTTLE OP SCH ×4 (10:12→20:10)
[2017-03-11] MEDS: Aspirin 81 MG TAB.CHEW PO SCH (10:12)
[2017-03-11] MEDS: GuaiFENesin/Dextromethorphan TABLET PO SCH ×2 (10:12→20:10)
--- NOTE | 2017-03-11 10:23 | Internal Med Progress Note ---
Date of Encounter: 03/11/17 Time of Encounter: 10:20 - Assessment and plan (1) Pneumonia Current Visit: Yes Status: Acute Assessment and plan: Continue with IV antibiotics. Might de-escalate tomorrow. Monitor vancomycin levels. According to PT eval, patient will benefit from SNF, follow social service worker eval. Qualifiers: Pneumonia type: due to unspecified organism Laterality: left Lung location: lower lobe of lung Qualified Code(s): J18.1 - Lobar pneumonia, unspecified organism (2) Bradycardia Current Visit: Yes Status: Acute Assessment and plan: Will lower dose of beta penelope. Continue monitoring. (3) Elevated troponin Current Visit: Yes Status: Acute (4) History of subdural hematoma Current Visit: Yes Status: Acute (5) Non-STEMI (non-ST elevated myocardial infarction) Current Visit: Yes Status: Acute Assessment and plan: Cardio input noted. (6) DVT prophylaxis Current Visit: Yes Status: Acute Assessment and plan: Patient has EPCDs - Subjective Interval history: Patient states that he does not feel very good today. He has a lange catherer placed. Complaining of cough. - Constitutional Vitals: Temp Pulse Resp BP Pulse Ox 96.7 F L 48 16 147/76 91 03/11/17 07:00 03/11/17 07:00 03/11/17 08:36 03/11/17 07:00 03/11/17 08:36 General appearance: Present: disheveled, A&O X 2, no acute distress - Head Head exam: Present: atraumatic, normocephalic - Eye Eye exam: Present: PERRL, conjuntiva pink, sclera anicteric Pupils: Present: PERRL - Neck Neck exam general surgery: Present: supple, trachea midline. Absent: lymphadenopathy - Respiratory Respiratory exam: Present: decreased breath sounds, rhonchi. Absent: accessory muscle use, rales, wheezes - Cardiovascular Cardiovascular exam: Present: RRR, +S1, +S2. Absent: diastolic murmur, gallop, rubs, systolic murmur - GI/Abdominal GI/Abdominal exam: Present: normal bowel sounds, soft, no peritoneal signs. Absent: distended, tenderness - Extremities Exam Extremities exam: Present: warm, radial pulses palpable and symetrical. Absent : calf tenderness, cyanotic, pedal edema - Neurological Exam Neurological exam: Present: CN II-XII intact, oriented X3, no focal deficits. Absent: pronater drift, facial droop, speech deficit - Skin Skin exam: Present: dry, intact Internal Medicine: Result - Labs CBC & Chem 7: 03/11/17 05:22 03/11/17 05:22 Labs: Short CBC 03/11/17 Range/Units 05:22 WBC 5.2 (4.3-11.1) K/mcL Hgb 10.2 L (12.9-16.9) g/dL Hct 32.0 L (37.5-50.1) % Plt Count 101 L (140-400) K/mcL Neutrophils # 4.3 (1.6-8.9) K/mcL BMP 03/11/17 05:22 Sodium 139 Potassium 4.2 Chloride 104 Carbon Dioxide 27 BUN 24 Creatinine 1.46 H Glucose 88 Calcium 8.9 Cardiac Enzymes 03/10/17 Range/Units 16:23 Troponin I 0.09 H* (0-0.03) ng/mL - VTE Documentation of Mechanical Device: Intermittent pneumatic compression device Consult Discharge Plan - Plan [facility]errals: [facility] [Primary Care Provider] -
[2017-03-11] MEDS: Cefepime HCl 1,000 MG in D5% in Water (Mini-Bag+) 100 ML IVPB SCH (17:09)
[2017-03-11] MEDS: Vancomycin 1,750 MG in D5% in Water 500 ML IVPB SCH (19:10)
[2017-03-11] MEDS: amLODIPine 5 MG TABLET PO SCH (20:10)
[2017-03-12 04:09] LABS: Basophils % 0.5 %; Eosinophils # 0.2 K/mcL (0.0-0.6); Eosinophils % 4.6 %; Hematocrit 34.1 % (37.5-50.1); Hemoglobin 10.9 g/dL (12.9-16.9); Immature Granulocytes % 0.9 % (0-4); Lymphocytes % 22.5 %; Mean Corpuscular Volume 93.9 fL (83.0-100.0); Mean Platelet Volume 11.1 fL (9.4-12.4); Monocytes # 0.4 K/mcL (0.0-1.3); Monocytes % 9.2 %; Neutrophils # 2.7 K/mcL (1.6-8.9); Platelet Count 139 K/mcL (140-400); Red Blood Count 3.63 M/mcL (4.19-5.50); Red Cell Distribution Width 13.1 % (11.5-14.5); Segmented Neutrophils % 62.3 %
[2017-03-12 04:15] LABS: BUN/Creatinine Ratio 15 (6-26); Blood Urea Nitrogen 19 mg/dL (8-26); Carbon Dioxide 25 mEq/L (19-29); Chloride 106 mEq/L (98-109); Glucose 84 mg/dL (70-99); Sodium 140 mEq/L (136-145); eGFR For African Americans > 60 (> 60); eGFR For Non-African Americans 55 (> 60)
[2017-03-12 04:16] LABS: Calcium 9.1 mg/dL (8.6-10.8); Osmolality,Calculated 291 (280-300)
[2017-03-12] MEDS: Tiotropium 18 MCG inhalation IH SCH (07:55)
[2017-03-12] MEDS: Aspirin 81 MG TAB.CHEW PO SCH (09:26)
[2017-03-12] MEDS: GuaiFENesin/Dextromethorphan TABLET PO SCH (09:26)
[2017-03-12] MEDS: Megestrol Acetate 400 MG/10 ML UDC PO SCH ×2 (09:27→21:49)
[2017-03-12] MEDS: Metoprolol XL (24 HR) Succ 25 MG TAB.ER.24H PO SCH (09:27)
[2017-03-12] MEDS: Artificial Tears SOLN 15 ML BOTTLE OP SCH ×4 (09:28→21:50)
[2017-03-12] MEDS: levETIRAcetam 250 MG TABLET PO SCH ×2 (09:29→21:49)
--- NOTE | 2017-03-12 10:23 | Internal Med Progress Note ---
<Isabel Gotti Matthias - Last Filed: 03/12/17 19:28> Date of Encounter: 03/12/17 Time of Encounter: 09:20 - Assessment and plan (1) Pneumonia Current Visit: Yes Status: Acute Assessment and plan: Patient was started on vancomyin and zosyn for pneumonia On day#3 Zosyn was changed to cefepime CT chest today demonstrates tree-in-bud opacities in RML and RLL CT shows patchy areas of consolidation within LLL, pathcy-ground glass opacification and tree-in-bud opacities withing JOSE CRUZ and lingula Given concern for aspiration, will stop cefepime and restart Zosyn No leukocytosis Patient is nontoxic on exam Qualifiers: Pneumonia type: due to unspecified organism Laterality: left Lung location: lower lobe of lung Qualified Code(s): J18.1 - Lobar pneumonia, unspecified organism (2) Bradycardia Current Visit: Yes Status: Acute Assessment and plan: Resolved Beta penelope was held Patient's HR 85 at this time Continue monitoring (3) Elevated troponin Current Visit: Yes Status: Acute Assessment and plan: Troponins flat, adynamic Troponin elevation likely secondary in the setting of pneumonia (4) History of subdural hematoma Current Visit: Yes Status: Acute (5) Systolic heart failure Current Visit: Yes Status: Chronic Assessment and plan: Ejection fraction 40-45%. Prior ADAN had shown an ejection fraction of 60%. Patient is on a beta penelope at this time. Will hold off on JOSELINE inhibitor as he has an acute kidney injury. Qualifiers: Heart failure chronicity: chronic Qualified Code(s): I50.22 - Chronic systolic (congestive) heart failure (6) Coronary artery disease Current Visit: Yes Status: Acute Assessment and plan: As stated above. Continue Lipitor and aspirin. No Plavix with recent history of subdural hematoma. Qualifiers: Coronary Disease-Associated Artery/Lesion type: unspecified vessel or lesion type Associated angina: angina presence unspecified Qualified Code(s): I25.10 - Atherosclerotic heart disease of [place] coronary artery without angina pectoris (7) DVT prophylaxis Current Visit: Yes Status: Acute Assessment and plan: Patient has EPCDs - Time Spent With Patient 25 - 35 minutes (25 minutes including time with patient and coordinaing care) - Subjective Interval history: Patient states he is feeling better today. He denies dyspnea. Continues to have cough. Patient has lange in place. - Constitutional Vitals: Temp Pulse Resp BP Pulse Ox 97.7 F 53 22 142/72 97 03/12/17 07:46 03/12/17 07:46 03/12/17 07:58 03/12/17 07:46 03/12/17 07:58 General appearance: Present: disheveled, no acute distress Exam: Patient oriented to situation. He states that he is improving with the current treatment of antibiotics. - Head Head exam: Present: atraumatic, normocephalic - Eye Eye exam: Present: PERRL, sclera anicteric Pupils: Present: PERRL - Neck Neck exam general surgery: Present: supple, trachea midline Additional comments: No carotid bruit - Respiratory Respiratory exam: Present: rhonchi (Diffuse rhonchi in all lung bashir). Absent : accessory muscle use, rales, wheezes - Cardiovascular Cardiovascular exam: Present: RRR, +S1, +S2. Absent: diastolic murmur, gallop, rubs, systolic murmur - GI/Abdominal GI/Abdominal exam: Present: normal bowel sounds, soft, no peritoneal signs. Absent: distended, tenderness - Extremities Exam Extremities exam: Present: warm, radial pulses palpable and symetrical. Absent : calf tenderness, cyanotic, pedal edema - Neurological Exam Neurological exam: Present: CN II-XII intact, oriented X3, no focal deficits. Absent: facial droop, speech deficit - Skin Skin exam: Present: dry, intact Internal Medicine: Result - Labs CBC & Chem 7: 03/12/17 02:51 03/12/17 02:51 Labs: Short CBC 03/12/17 Range/Units 02:51 WBC 4.4 (4.3-11.1) K/mcL Hgb 10.9 L (12.9-16.9) g/dL Hct 34.1 L (37.5-50.1) % Plt Count 139 L (140-400) K/mcL Neutrophils # 2.7 (1.6-8.9) K/mcL BMP 03/12/17 02:51 Sodium 140 Potassium 4.0 Chloride 106 Carbon Dioxide 25 BUN 19 Creatinine 1.25 Glucose 84 Calcium 9.1 - Impressions Chest X-Ray 03/12/17 10:42 IMPRESSION: Cardiomegaly with bilateral pleural effusions suggesting mild CHF. Bibasilar atelectasis with chronic interstitial changes again noted. D/ / Rashawn Collado MD / Rashawn Collado MD Interpreting Provider: Rashawn Collado MD Chest CT 03/12/17 14:38 IMPRESSION: 1. Multifocal areas of tree-in-bud opacities with more focal consolidation within the left lower lobe. There is diffuse bronchial wall thickening with a few foci of mucoid impaction as well. Findings favor an infectious process and aspiration should also be a consideration. 2. There is a 0.7 cm irregular nodule in the left upper lobe. Although this could be infectious in etiology recommend a short-term follow-up in 3 months to ensure resolution. 3. Subtle areas of subpleural reticulations noted bilaterally which are nonspecific, however likely related to underlying fibrotic changes. 4. 4.2 cm ascending aortic aneurysm. 5. Emphysematous changes. 6. Cholelithiasis. D/ / 03/12/2017 18:01:02 Ele Sadler MD / [email or web address] Interpreting Provider: Ele Sadler MD - VTE Documentation of Mechanical Device: Intermittent pneumatic compression device Consult Discharge Plan - Plan Referrals: [facility],PCP [Primary Care Provider] - 03/16/17 8:45 am (Please follow up as schedule...) <Michael Segura - Last Filed: 03/13/17 07:48> Date of Encounter: 03/13/17 - Assessment and plan (1) Pneumonia Current Visit: Yes Status: Acute Qualifiers: Pneumonia type: due to unspecified organism Laterality: left Lung location: lower lobe of lung Qualified Code(s): J18.1 - Lobar pneumonia, unspecified organism (2) Bradycardia Current Visit: Yes Status: Acute (3) Elevated troponin Current Visit: Yes Status: Acute (4) History of subdural hematoma Current Visit: Yes Status: Acute (5) Non-STEMI (non-ST elevated myocardial infarction) Current Visit: Yes Status: Acute (6) DVT prophylaxis Current Visit: Yes Status: Acute - Constitutional Vitals: Temp Pulse Resp BP Pulse Ox 98.5 F 54 22 141/76 95 03/13/17 04:17 03/13/17 04:17 03/13/17 04:17 03/13/17 04:17 03/13/17 04:17 Internal Medicine: Result - Labs CBC & Chem 7: 03/13/17 03:46 03/13/17 03:46 Labs: Short CBC 03/13/17 Range/Units 03:46 WBC 5.4 (4.3-11.1) K/mcL Hgb 11.2 L (12.9-16.9) g/dL Hct 34.2 L (37.5-50.1) % Plt Count 146 (140-400) K/mcL Neutrophils # 3.3 (1.6-8.9) K/mcL BMP 03/13/17 03:46 Sodium 138 Potassium 4.0 Chloride 106 Carbon Dioxide 24 BUN 18 Creatinine 1.30 H Glucose 106 H Calcium 9.1 - Impressions Impressions Chest X-Ray 03/12/17 10:42 IMPRESSION: Cardiomegaly with bilateral pleural effusions suggesting mild CHF. Bibasilar atelectasis with chronic interstitial changes again noted. D/ / Rashawn Collado MD / Rashawn Collado MD Interpreting Provider: Rashawn Collado MD Chest CT 03/12/17 14:38 IMPRESSION: 1. Multifocal areas of tree-in-bud opacities with more focal consolidation within the left lower lobe. There is diffuse bronchial wall thickening with a few foci of mucoid impaction as well. Findings favor an infectious process and aspiration should also be a consideration. 2. There is a 0.7 cm irregular nodule in the left upper lobe. Although this could be infectious in etiology recommend a short-term follow-up in 3 months to ensure resolution. 3. Subtle areas of subpleural reticulations noted bilaterally which are nonspecific, however likely related to underlying fibrotic changes. 4. 4.2 cm ascending aortic aneurysm. 5. Emphysematous changes. 6. Cholelithiasis. D/ 03/12/2017 18:01:02 Ele Sadler MD / [email or web address] Interpreting Provider: Ele Sadler MD - Attending Attestation I examined this patient and my medical decision-making was reviewed with the GLUE MOUNTER OPERATOR/PA/Advanced Practice Nurse/Resident Physician. I agree with the documented findings, disposition and treatment plan as described except to the extent set forth below. Follow CT and MBS. Continue iv antibiotics.
[2017-03-12] MEDS ORDERED: Sodium Chloride for inhalation 15 ML INHSOL IH ONE (11:05)
[2017-03-12] MEDS ORDERED: Cefepime HCl 2,000 MG in D5% in Water (Mini-Bag+) 100 ML IVPB SCH (18:00)
[2017-03-12] MEDS: Vancomycin 1,750 MG in D5% in Water 500 ML IVPB SCH (18:37)
--- NOTE | 2017-03-12 20:37 | Electrocardiograph Report ---
[address] [place], [place] [address] Test Date: 2017-03-10 Pat Name: Kiet Mckeon Department: 112 Room: 2A26 Gender: M [employer] Operator: ISABELA : 1935 Requested By: Michael Segura Order Number: [id number] Reading MD: Aniket Mckeon MD Measurements Intervals [place] Rate: 93 P: 46 OR: 175 QRS: 78 QRSD: 129 T: 39 QT: 356 QTc: 407 Interpretive Statements SINUS RHYTHM WITH FREQUENT VENTRICULAR PREMATURE COMPLEXES IN A BIGEMINAL PATTERN RIGHT BUNDLE BRANCH BLOCK Electronically Signed On 03-12-2017 20:36:20 EDT by Aniket Mckeon MD
[2017-03-12] MEDS: amLODIPine 5 MG TABLET PO SCH (21:50)
[2017-03-13] MEDS: Piperacillin/Tazobactam 3.375 GM in D5% in Water (Mini-Bag+) 100 ML IVPB SCH ×2 (00:24→08:48)
[2017-03-13 04:04] LABS: Basophils % 0.6 %; Eosinophils # 0.3 K/mcL (0.0-0.6); Eosinophils % 4.6 %; Hematocrit 34.2 % (37.5-50.1); Hemoglobin 11.2 g/dL (12.9-16.9); Immature Granulocytes % 1.9 % (0-4); Lymphocytes # 1.3 K/mcL (0.6-4.6); Lymphocytes % 23.1 %; Mean Corpuscular HGB Conc 32.7 g/dL (31.6-35.5); Mean Corpuscular Hemoglobin 30.2 pg (28.0-33.3); Mean Corpuscular Volume 92.2 fL (83.0-100.0); Mean Platelet Volume 11.2 fL (9.4-12.4); Monocytes # 0.5 K/mcL (0.0-1.3); Monocytes % 9.4 %; Neutrophils # 3.3 K/mcL (1.6-8.9); Platelet Count 146 K/mcL (140-400); Red Blood Count 3.71 M/mcL (4.19-5.50); Red Cell Distribution Width 13.1 % (11.5-14.5); Segmented Neutrophils % 60.4 %
[2017-03-13 04:24] LABS: BUN/Creatinine Ratio 14 (6-26); Blood Urea Nitrogen 18 mg/dL (8-26); Calcium 9.1 mg/dL (8.6-10.8); Carbon Dioxide 24 mEq/L (19-29); Chloride 106 mEq/L (98-109); Glucose 106 mg/dL (70-99); Osmolality,Calculated 288 (280-300); Sodium 138 mEq/L (136-145); eGFR For African Americans > 60 (> 60); eGFR For Non-African Americans 53 (> 60)
[2017-03-13] MEDS: Tiotropium 18 MCG inhalation IH SCH (07:53)
[2017-03-13] MEDS: Aspirin 81 MG TAB.CHEW PO SCH (08:47)
[2017-03-13] MEDS: Megestrol Acetate 400 MG/10 ML UDC PO SCH ×2 (08:47→21:55)
[2017-03-13] MEDS: levETIRAcetam 250 MG TABLET PO SCH ×2 (08:48→21:54)
[2017-03-13] MEDS: Metoprolol XL (24 HR) Succ 25 MG TAB.ER.24H PO SCH (08:48)
[2017-03-13] MEDS ORDERED: Aminoglycoside Consult 1 EACH MC ONE (09:30)
[2017-03-13] MEDS: Artificial Tears SOLN 15 ML BOTTLE OP SCH ×4 (09:43→21:56)
[2017-03-13] MEDS ORDERED: Levofloxacin 750 MG/150 ML 750 MG/150 ML BAG IVPB ONE (13:10)
--- NOTE | 2017-03-13 15:10 | Internal Med Progress Note ---
Date of Encounter: 03/13/17 Time of Encounter: 15:08 - Assessment and plan (1) JO-ANN (acute kidney injury) Current Visit: Yes Status: Acute Assessment and plan: Improved D/C vancomycin Continue to monitor (2) Bradycardia Current Visit: Yes Status: Acute Assessment and plan: Resolved Beta penelope was held Patient's HR 85 at this time Continue monitoring (3) Coronary artery disease Current Visit: Yes Status: Acute Assessment and plan: As stated above. Continue Lipitor and aspirin. No Plavix with recent history of subdural hematoma. 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 Assessment and plan: Chronic, stable (6) Pneumonia Current Visit: Yes Status: Acute Assessment and plan: Patient was started on vancomyin and zosyn for pneumonia On day4 of Zosyn and vancomycin CT chest 03.12.17 demonstrates tree-in-bud opacities in RML and RLL CT shows patchy areas of consolidation within LLL, pathcy-ground glass opacification and tree-in-bud opacities withing JOSE CRUZ and lingula Patient is afebrile, he has no increasing O2 requirements and has no leukocytosis Will deescalate antibiotics Will discontinue Vancomycin, renal function is worsening and today is day 4 of antibiotics Will change to levoflox for pseudomonas coverage and unasyn to cover for anaerobes and strep If patient continues to make improvement on this regimen, will transfer back to the [facility] tomorrow Qualifiers: Pneumonia type: due to unspecified organism Laterality: left Lung location: lower lobe of lung Qualified Code(s): J18.1 - Lobar pneumonia, unspecified organism (7) Systolic heart failure Current Visit: Yes Status: Chronic Assessment and plan: Ejection fraction 40-45%. Prior ADAN had shown an ejection fraction of 60%. Patient is on a beta penelope at this time. Will hold off on JOSELINE inhibitor as he has an acute kidney injury. 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 Current Visit: Yes Status: Chronic Assessment and plan: Chronic, stable Qualifiers: Emphysema type: unspecified Qualified Code(s): J43.9 - Emphysema, unspecified (9) HTN (hypertension) Current Visit: Yes Status: Chronic Assessment and plan: Controlled, continue current meds Qualifiers: Hypertension type: essential hypertension Qualified Code(s): I10 - Essential (primary) hypertension - Subjective Interval history: 82 Y/O M Seen in bed Seems confused and oriented only to person He is being managed for Pnuemonia and demand ischemia he is a resident of the [facility] and was being managed for HCAP there but was transferred here for further eval Patient has PMH of Subdural hematoma, CHFrEF, CAD, HTN, Emphysema, Ascending ortic aneurysm There was some concern for aspiration as a contributory factor to his pneumonia Speech eval noted, diet has been adjusted His JO-ANN was improving but creatinine is slightly elevated today Cardiology eval noted, they have signed off Patient denies chest pain, denies new complains - Constitutional Vitals: Temp Pulse Resp BP Pulse Ox 98.6 F 58 19 156/88 94 03/13/17 11:45 03/13/17 11:45 03/13/17 11:45 03/13/17 11:45 03/13/17 11:45 General appearance: Present: A&O X 1, disheveled, no acute distress - Head Head exam: Present: atraumatic, normocephalic - Eye Eye exam: Present: PERRL, conjuntiva pink, sclera anicteric Pupils: Present: PERRL - Neck Neck exam general surgery: Present: supple, trachea midline. Absent: lymphadenopathy - Respiratory Respiratory exam: Present: CTAB. Absent: accessory muscle use, rales, rhonchi, wheezes - Cardiovascular Cardiovascular exam: Present: RRR, +S1, +S2, systolic murmur. Absent: diastolic murmur, gallop, rubs - GI/Abdominal GI/Abdominal exam: Present: normal bowel sounds, soft, no peritoneal signs. Absent: distended, tenderness - Extremities Exam Extremities exam: Present: warm, radial pulses palpable and symetrical. Absent : calf tenderness, cyanotic, pedal edema - Neurological Exam Neurological exam: Present: alert, CN II-XII intact, no focal deficits. Absent : oriented X3, pronater drift, facial droop, speech deficit - Skin Skin exam: Present: dry Internal Medicine: Result - Labs CBC & Chem 7: 03/13/17 03:46 03/13/17 03:46 Labs: Short CBC 03/13/17 Range/Units 03:46 WBC 5.4 (4.3-11.1) K/mcL Hgb 11.2 L (12.9-16.9) g/dL Hct 34.2 L (37.5-50.1) % Plt Count 146 (140-400) K/mcL Neutrophils # 3.3 (1.6-8.9) K/mcL BMP 03/13/17 03:46 Sodium 138 Potassium 4.0 Chloride 106 Carbon Dioxide 24 BUN 18 Creatinine 1.30 H Glucose 106 H Calcium 9.1 - Impressions Impressions Chest CT 03/12/17 14:38 IMPRESSION: 1. Multifocal areas of tree-in-bud opacities with more focal consolidation within the left lower lobe. There is diffuse bronchial wall thickening with a few foci of mucoid impaction as well. Findings favor an infectious process and aspiration should also be a consideration. 2. There is a 0.7 cm irregular nodule in the left upper lobe. Although this could be infectious in etiology recommend a short-term follow-up in 3 months to ensure resolution. 3. Subtle areas of subpleural reticulations noted bilaterally which are nonspecific, however likely related to underlying fibrotic changes. 4. 4.2 cm ascending aortic aneurysm. 5. Emphysematous changes. 6. Cholelithiasis. D/ / 03/12/2017 18:01:02 Ele Sadler MD / [email or web address] Interpreting Provider: Ele Sadler MD - VTE Documentation of Mechanical Device: Intermittent pneumatic compression device Consult Discharge Plan - Plan [facility]errals: [facility] [Primary Care Provider] - 03/16/17 8:45 am (Please follow up as schedule...)
[2017-03-13] MEDS: Ampicillin/Sulbactam 3,000 MG in 0.9 % Sodium Chloride Mini Bag 100 ML IVPB SCH (17:40)
[2017-03-13] MEDS: amLODIPine 5 MG TABLET PO SCH (21:54)
[2017-03-14] MEDS: Ampicillin/Sulbactam 3,000 MG in 0.9 % Sodium Chloride Mini Bag 100 ML IVPB SCH ×3 (00:16→11:22)
[2017-03-14 05:16] LABS: Basophils % 0.4 %; Eosinophils # 0.2 K/mcL (0.0-0.6); Eosinophils % 4.3 %; Hematocrit 33.4 % (37.5-50.1); Immature Granulocytes % 2.4 % (0-4); Lymphocytes % 17.6 %; Mean Corpuscular HGB Conc 32.9 g/dL (31.6-35.5); Mean Corpuscular Hemoglobin 30.5 pg (28.0-33.3); Mean Corpuscular Volume 92.5 fL (83.0-100.0); Mean Platelet Volume 11.3 fL (9.4-12.4); Monocytes # 0.5 K/mcL (0.0-1.3); Monocytes % 8.7 %; Neutrophils # 3.6 K/mcL (1.6-8.9); Platelet Count 144 K/mcL (140-400); Red Blood Count 3.61 M/mcL (4.19-5.50); Red Cell Distribution Width 13.1 % (11.5-14.5); Segmented Neutrophils % 66.6 %
[2017-03-14 05:30] LABS: BUN/Creatinine Ratio 12 (6-26); Blood Urea Nitrogen 16 mg/dL (8-26); Calcium 9.2 mg/dL (8.6-10.8); Carbon Dioxide 25 mEq/L (19-29); Chloride 106 mEq/L (98-109); Glucose 92 mg/dL (70-99); Osmolality,Calculated 289 (280-300); Potassium 4.1 mEq/L (3.5-4.5); Sodium 139 mEq/L (136-145); eGFR For African Americans > 60 (> 60); eGFR For Non-African Americans 52 (> 60)
[2017-03-14] MEDS: Tiotropium 18 MCG inhalation IH SCH (07:50)
[2017-03-14] MEDS: levETIRAcetam 250 MG TABLET PO SCH (08:07)
[2017-03-14] MEDS: Metoprolol XL (24 HR) Succ 25 MG TAB.ER.24H PO SCH (08:07)
[2017-03-14] MEDS: Megestrol Acetate 400 MG/10 ML UDC PO SCH (08:07)
[2017-03-14] MEDS: Aspirin 81 MG TAB.CHEW PO SCH (08:08)
[2017-03-14] MEDS: Artificial Tears SOLN 15 ML BOTTLE OP SCH ×2 (08:08→11:23)
[2017-03-14] MEDS ORDERED: Levofloxacin 500 MG/100 ML 500 MG/100 ML BAG IVPB SCH (09:00)
[2017-03-14 11:05] VITALS: BP 140/62
--- NOTE | 2017-03-14 11:47 | Discharge Summary ---
Date of Encounter: 03/14/17 Time of Encounter: 11:46 - Discharge Diagnosis (1) JO-ANN (acute kidney injury) Priority: Primary Status: Resolved Comments: Patient with CKD III and Superimposed JO-ANN on admission Cr and GFR Improved Continue to follow up with PCP (2) Bradycardia Priority: Primary Status: Resolved Comments: Resolved with holding BB BB was restarted at lower dose Patient has no hypotension, and is stable to be discharged (3) Coronary artery disease Priority: Secondary Status: Chronic Comments: Continue Lipitor and aspirin. No Plavix with recent history of subdural hematoma Qualifiers: Coronary Disease-Associated Artery/Lesion type: unspecified vessel or lesion type Associated angina: angina presence unspecified Qualified Code(s): I25.10 - Atherosclerotic heart disease of [place] coronary artery without angina pectoris (4) Elevated troponin Priority: Primary Status: Acute Comments: Troponins flat, adynamic Troponin elevation likely secondary in the setting of pneumonia Ejection fraction 40-45%, no WMA Cardiology was consulted and recommended no intervention Patient is on a beta penelope at this time, ASA, Lipitor, continue same Will hold off on JOSELINE inhibitor due to JO-ANN on CKD (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 (6) Pneumonia Priority: Primary Status: Acute Comments: Patient was started on vancomyin and zosyn for pneumonia Received 4 days of Zosyn and vancomycin CT chest 03.12.17 demonstrates tree-in-bud opacities in RML and RLL CT shows patchy areas of consolidation within LLL, pathcy-ground glass opacification and tree-in-bud opacities withing JOSE CRUZ and lingula Patient was afebrile, he had no increasing O2 requirements and has no leukocytosis Cultures were negtaive, antibiotics were de-escalated to Levoflox and Unasyn He is discharged home on same, to complete 7 days of levoflox and 10 days of Augmentin Qualifiers: Pneumonia type: due to unspecified organism Laterality: left Lung location: lower lobe of lung Qualified Code(s): J18.1 - Lobar pneumonia, unspecified organism (7) Systolic heart failure Priority: Secondary Status: Chronic Comments: as in elevated troponins 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 Priority: Secondary Status: Chronic Qualifiers: Emphysema type: unspecified Qualified Code(s): J43.9 - Emphysema, unspecified (9) HTN (hypertension) Priority: Secondary Status: Chronic Qualifiers: Hypertension type: essential hypertension Qualified Code(s): I10 - Essential (primary) hypertension - Discharge Medications Prescriptions: Amoxicillin/Clavulanate [Augmentin] 875 mg PO BIDWM #12 tablet Levofloxacin 500 mg PO DAILY #3 tablet Home Medications: Amlodipine [Norvasc] 10 mg PO HS 05/02/16 [History] Aspirin 81 mg PO DAILY 05/02/16 [History] Docusate [Colace] 100 mg PO DAILY 05/02/16 [History] Montelukast [Singulair] 10 mg PO DAILY 05/02/16 [History] Tamsulosin [Flomax] 0.4 mg PO DAILY 05/02/16 [History] Acetaminophen [Tylenol] 975 mg PO DAILY PRN MDD 3000mg 12/19/16 [History] Bisacodyl [Woman's Laxative] 10 mg PO DAILY PRN 12/19/16 [History] Carboxymethylcellulose Sodium [Refresh Celluvisc] 1 drop OP QID 12/19/16 [ History] Chlorhexidine Gluconate [Betasept] 15 ml TP DAILY 12/19/16 [History] Ferrous Gluconate 324 mg PO DAILY 12/19/16 [History] Fluticasone Propionate Nasal [Flonase] 1 spray NS BID 12/19/16 [History] LevETIRAcetam [Keppra] 750 mg PO BID 12/19/16 [History] Mag Hydrox/Al Hydrox/Simeth [Maalox Advanced Suspension] 10 ml PO QID PRN [History] Megestrol Acetate [Megace] 10 ml PO BID 12/19/16 [History] Melatonin 6 mg PO HS PRN 12/19/16 [History] Metoprolol Succinate 25 mg PO DAILY 12/19/16 [History] Mirtazapine [Remeron] 30 mg PO HS 12/19/16 [History] Nitroglycerin 0.4 mg SL Q5M PRN 12/19/16 [History] Oxybutynin [Ditropan] 5 mg PO BID 12/19/16 [History] Tiotropium [Spiriva] 1 cap IH DAILY 12/19/16 [History] Tramadol HCl [Ultram] 50 mg PO HS PRN 12/19/16 [History] Albuterol Neb [Proventil Neb] 2.5 mg IH Q6HR 30 Days 12/21/16 [Rx] Tramadol HCl [Ultram] 25 mg PO QAM #30 tablet 12/21/16 [Rx] Erythromycin OPTH Oint 1 appl RIGHT EYE ONCE #1 tube 02/02/17 [Rx] Amoxicillin/Clavulanate [Augmentin] 875 mg PO BIDWM #12 tablet 03/14/17 [Rx] Levofloxacin 500 mg PO DAILY #3 tablet 03/14/17 [Rx] Allergies/Adverse Reactions: Allergies chicken Allergy (Uncoded 03/11/17 05:43) Hives Procedures/tests Complete & Pending: Procedures Performed prior 72 hours Category Date Time Status CT chest w/o contrast [CT chest wo con] [CT] Routine Cat Scan 03/12/17 14:38 Draft Date of admission: 03/09/17 13:26 [facility] care physician: [facility] Consults: 03/09/17 14:27 Consult to Cider Press Operator [CONS] Routine Reason for SW Consult: Pt resides at the [facility] 03/09/17 14:34 Consult to Speech Therapy [CONS] Routine Comment: Evaluate, develop and implement POC Reason for Consult: please evaluate for possible aspiration. thank you Call Completed: No 03/10/17 10:45 Consult to Occupational Therapy [CONS] Routine Comment: Evaluate, develop and implement POC Consult to Physical Therapy [CONS] Routine Comment: Evaluate, develop and implement POC 03/12/17 11:00 Consult to Respiratory Therapy [CONS] Routine Reason for Consult: Induced sputum culture Call Completed: No Discharging clinician: Michael Cain Anticipated date of discharge: 03/14/17 - Patient Status Disposition: Transfer Inpatient Rehab Fac Condition: Fair Functional capacity at discharge: uses cane/walker Overall status at discharge: patient is progressing back to baseline - Discharge Instructions Follow Up With: [facility] [Primary Care Provider[facility] - 03/16/17 8:45 am (Please follow up as schedule...) - Diet and Activity Activity: resume usual activities as tolerated Diet: low fat, low cholesterol, low salt diet Interval History: Mr. Mckeon is a 82 year old male with past medical history of SDH from a fall in , COPD and HTN who was transferred from [facility] ED due to elevated troponin. HE lives at [facility] and has been having chronic cough and sob. As pe rthe son, he was just started on IV antibiotics for peumonia. HE denies any chest pain at time of admission. he was transferred to [facility] due to elevated trop at [facility] which was 0.05. Work up here revealed slightly elevated troponin, as well as JO-ANN and CXR showed pneumonia He was admitted to work up for acute coronary symdrome , Pneumonia management and JO-ANN management Hospital course: Patient was admitted for management of HCAP, JO-ANN and elevated troponin he is seen at bedside today and is stable to return to the [facility] Details of diagnoses are as stated in each diagnosis - Time Spent with Patient Total time spent providing and/or coordinating discharge services: Greater than 30 minutes (40 minutes spent on chart review, face to face encounter, medication reconciliation and documentation) - Constitutional Vitals: Temp Pulse Resp BP Pulse Ox 98.4 F 74 18 140/62 95 03/14/17 11:04 03/14/17 11:04 03/14/17 11:04 03/14/17 11:04 03/14/17 11:04 General appearance: Present: A&O X 1, pleasant, no acute distress, answers questions appropriately - Head Head exam: Present: atraumatic, normocephalic - Eye Eye exam: Present: PERRL, conjuntiva pink, sclera anicteric Pupils: Present: PERRL - Neck Neck exam general surgery: Present: supple, trachea midline. Absent: lymphadenopathy - Respiratory Respiratory exam: Present: CTAB. Absent: accessory muscle use, rales, rhonchi, wheezes - Cardiovascular Cardiovascular exam: Present: RRR, +S1, +S2. Absent: diastolic murmur, gallop, rubs, systolic murmur - GI/Abdominal GI/Abdominal exam: Present: normal bowel sounds, soft, no peritoneal signs. Absent: distended, tenderness - Extremities Exam Extremities exam: Present: warm, radial pulses palpable and symetrical. Absent : calf tenderness, cyanotic, pedal edema - Neurological Exam Neurological exam: Present: alert, CN II-XII intact, no focal deficits. Absent : oriented X3, pronater drift, facial droop, speech deficit - Skin Skin exam: Present: dry, intact - VTE Documentation of Mechanical Device: Intermittent pneumatic compression device
--- NOTE | 2017-03-14 11:48 | Physician Discharge Referral ---
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 Priority: Secondary Status: Chronic (9) HTN (hypertension) Priority: Secondary Status: Chronic Prognosis: Fair Aware of Diagnosis: Patient Aware of Prognosis: Patient - Transfer Medications Prescriptions: Amoxicillin/Clavulanate [Augmentin] 875 mg PO BIDWM #12 tablet Levofloxacin 500 mg PO DAILY #3 tablet Home Medications: Amlodipine [Norvasc] 10 mg PO HS 05/02/16 [History] Aspirin 81 mg PO DAILY 05/02/16 [History] Docusate [Colace] 100 mg PO DAILY 05/02/16 [History] Montelukast [Singulair] 10 mg PO DAILY 05/02/16 [History] Tamsulosin [Flomax] 0.4 mg PO DAILY 05/02/16 [History] Acetaminophen [Tylenol] 975 mg PO DAILY PRN MDD 3000mg 12/19/16 [History] Bisacodyl [Woman's Laxative] 10 mg PO DAILY PRN 12/19/16 [History] Carboxymethylcellulose Sodium [Refresh Celluvisc] 1 drop OP QID 12/19/16 [ History] Chlorhexidine Gluconate [Betasept] 15 ml TP DAILY 12/19/16 [History] Ferrous Gluconate 324 mg PO DAILY 12/19/16 [History] Fluticasone Propionate Nasal [Flonase] 1 spray NS BID 12/19/16 [History] LevETIRAcetam [Keppra] 750 mg PO BID 12/19/16 [History] Mag Hydrox/Al Hydrox/Simeth [Maalox Advanced Suspension] 10 ml PO QID PRN [History] Megestrol Acetate [Megace] 10 ml PO BID 12/19/16 [History] Melatonin 6 mg PO HS PRN 12/19/16 [History] Metoprolol Succinate 25 mg PO DAILY 12/19/16 [History] Mirtazapine [Remeron] 30 mg PO HS 12/19/16 [History] Nitroglycerin 0.4 mg SL Q5M PRN 12/19/16 [History] Oxybutynin [Ditropan] 5 mg PO BID 12/19/16 [History] Tiotropium [Spiriva] 1 cap IH DAILY 12/19/16 [History] Tramadol HCl [Ultram] 50 mg PO HS PRN 12/19/16 [History] Albuterol Neb [Proventil Neb] 2.5 mg IH Q6HR 30 Days 12/21/16 [Rx] Tramadol HCl [Ultram] 25 mg PO QAM #30 tablet 12/21/16 [Rx] Erythromycin OPTH Oint 1 appl RIGHT EYE ONCE #1 tube 02/02/17 [Rx] Amoxicillin/Clavulanate [Augmentin] 875 mg PO BIDWM #12 tablet 03/14/17 [Rx] Levofloxacin 500 mg PO DAILY #3 tablet 03/14/17 [Rx] Allergies/Adverse Reactions: Allergies chicken Allergy (Uncoded 03/11/17 05:43) Hives - Respiratory Orders Oxygen / L per min (2L/min, goal O2 Sat 92%) Smoking Cessation: Smoking cessation has been advised. For more information, call the [place] Tobacco Quit Line at 8-663-ROPE-NOW. - Advance Directives Code Status: Full Code - Mobility Orders Other - Rehabiliation Orders Rehab Potential: Fair Rehab Orders: Evaluation for Physical Therapy - Diet Orders Cardiac CERTIFICATION: I certify that the transfer of the above named patient to an Extended Care Facility is necessary for the continuing treatment of the diagnosis listed. The above information is true and accurate reflection of patient's current condition. Confidential - Redisclosure prohibited without a patient's written consent.
== END 2017-03-14 12:39 | DRG 194 ==
LOC: EMEROO 12:02 → 2ANU 13:26 → SUATTDRO 13:26 → 2ANU 13:50
PROVIDERS: ADMIT Internal Medicine Endocrinology, Diabetes & Metabolism; ATTEND Internal Medicine

== ENCOUNTER 2017-09-08 | Inpatient (IN) ==
--- NOTE | 2017-09-08 00:09 | Emergency Department Note ---
Disposition Clinical Impression: Elevated troponin, Elevated brain natriuretic peptide (BNP) level, Healthcare- associated pneumonia Chest pain Qualifiers: Chest pain type: unspecified Qualified Code(s): R07.9 - Chest pain, unspecified Disposition: Admitted As Inpatient Condition: Fair Time of Disposition: 01:39 Chest Pain HPI - General Chief Complaint: ED Chest Pain Stated Complaint: CP,fall Time Seen by Provider: 09/08/17 00:06 Source: patient, EMS Mode of arrival: EMS Limitations: no limitations Vital Signs Reviewed: Yes Nursing Notes Reviewed: Yes - History of Present Illness HPI Narrative: 82-year-old male is brought by EMS from the [facility] for evaluation of substernal chest pain. The patient had ambulated to the restroom where he is a resident at the [facility], and fell, striking his head. He was sent for a noncontrast CT of the head and brain. Upon his returning to his room, he developed substernal chest pain that he rated an 8 out of 10 on a 10 point scale. Nursing staff there administered one sublingual nitroglycerin, which subsequently alleviated his chest pain in its entirety. Laboratory results were drawn there, and the patient did have an elevated troponin level. He was sent here for further evaluation. At this time, he states his chest pain is still a 0 out of 0. He denies any headache, or neck pain. He does complain of mid back pain after his fall. Pt complaint: chest pain Onset (ago): Just [employer] Duration: now resolved Pain Location: substernal Improves with: nitroglycerin Treatments prior to arrival chest pain: nitroglycerin - Related Data Home Medications Medication Instructions Recorded Confirmed Aspirin 81 mg PO DAILY 05/02/16 03/09/17 Docusate [Colace] 100 mg PO DAILY 05/02/16 03/09/17 Montelukast [Singulair] 10 mg PO DAILY 05/02/16 03/09/17 Tamsulosin [Flomax] 0.4 mg PO DAILY 05/02/16 03/09/17 amLODIPine [Norvasc] 10 mg PO HS 05/02/16 03/09/17 Acetaminophen [Tylenol] 975 mg PO DAILY PRN MDD 3000mg 12/19/16 03/09/17 Bisacodyl [Woman's Laxative] 10 mg PO DAILY PRN 12/19/16 03/09/17 Carboxymethylcellulose Sodium 1 drop OP QID 12/19/16 03/09/17 [Refresh Celluvisc] Chlorhexidine Gluconate [Betasept] 15 ml TP DAILY 12/19/16 03/09/17 Ferrous Gluconate 324 mg PO DAILY 12/19/16 03/09/17 Fluticasone Propionate Nasal 1 spray NS BID 12/19/16 03/09/17 [Flonase] LevETIRAcetam [Keppra] 750 mg PO BID 12/19/16 03/09/17 Mag Hydrox/Al Hydrox/Simeth 10 ml PO QID PRN 12/19/16 03/09/17 [Maalox Advanced Suspension] Megestrol Acetate [Megace] 10 ml PO BID 12/19/16 03/09/17 Melatonin 6 mg PO HS PRN 12/19/16 03/09/17 Metoprolol Succinate 25 mg PO DAILY 12/19/16 03/09/17 Mirtazapine [Remeron] 30 mg PO HS 12/19/16 03/09/17 Nitroglycerin 0.4 mg SL Q5M PRN 12/19/16 03/09/17 Oxybutynin [Ditropan] 5 mg PO BID 12/19/16 03/09/17 Tiotropium [Spiriva] 1 cap IH DAILY 12/19/16 03/09/17 Tramadol HCl [Ultram] 50 mg PO HS PRN 12/19/16 03/09/17 Previous Rx's Medication Instructions Recorded Albuterol Neb [Proventil Neb] 2.5 mg IH Q6HR 30 Days vial.neb 12/21/16 Tramadol HCl [Ultram] 25 mg PO QAM #30 tablet 12/21/16 Erythromycin OPTH Oint 1 appl RIGHT EYE ONCE #1 tube 02/02/17 Amoxicillin/Clavulanate [Augmentin] 875 mg PO BIDWM #12 tablet 03/14/17 levoFLOXacin [Levofloxacin] 500 mg PO DAILY #3 tablet 03/14/17 Allergies Allergy/AdvReac Type Severity Reaction Status Date / Time chicken Allergy Hives Uncoded 03/11/17 05:43 All systems ED: reviewed and negative except as stated. Constitutional: Denies: fever, chills, weakness, weight change Eyes: Denies: eye pain, eye discharge, vision change ENT ED: Denies: ear pain, throat pain, dental pain, hearing loss, epistaxis, congestion, dysphagia Cardiovascular: Reports: as per HPI, chest pain. Denies: palpitations, dyspnea on exertion, edema, syncope Respiratory: Denies: cough, dyspnea, wheezes, hemoptysis, stridor Gastrointestinal: Denies: abdominal pain, nausea, vomiting, diarrhea, constipation, hematemesis, melena, hematochezia Genitourinary: Denies: urgency, dysuria, frequency, hematuria Musculoskeletal: Reports: as per HPI, back pain. Denies: neck pain, arthralgia , myalgia Integumentary: Denies: rash, abrasion, lesions Neurological: Denies: headache, weakness, numbness, paresthesias, confusion, abnormal gait, vertigo Psychiatric: Denies: anxiety, depression, suicidal thoughts, homicidal thoughts , auditory hallucinations, visual hallucinations Endocrine: Denies: fatigue Hematological/Lymphatic: Denies: easy bleeding, easy bruising Allergic/Immunologic: Denies: facial swelling, urticaria Chest Pain PMH - Past Medical History Medical history: Reports: COPD, coronary artery disease, hypertension, other ( D April 2016) Surgical history: Reports: angioplasty/stent Psychiatric history: Reports: anxiety, depression - Social History Smoking Status: Former smoker Alcohol use: Reports: none Drug use: Reports: none Physical Exam - General Limitations: no limitations General appearance: alert, in no apparent distress - Head Head exam: atraumatic, normocephalic, normal inspection - Eye Eye exam: Present: normal appearance, PERRL, EOMI. Absent: nystagmus - ENT ENT exam: mucous membranes moist - Neck Neck exam: Present: normal inspection, full ROM, trachea midline - Chest Chest inspection: Present: normal inspection, symmetric chest wall rise - Respiratory Respiratory exam: Present: normal lung sounds bilaterally. Absent: accessory muscle use - Cardiovascular Cardiovascular exam: Present: regular rate, normal rhythm, normal heart sounds - Abdominal Exam Abdominal exam: Present: soft, Non-Tender, normal bowel sounds - Extremities Exam Extremities exam: Present: normal inspection, full ROM. Absent: tenderness, pedal edema - Back Exam Back exam: Present: normal inspection, full ROM. Absent: tenderness, paraspinal tenderness, vertebral tenderness - Neurological Exam Neurological exam: Present: alert, oriented X3 - Psychiatric Psychiatric exam: Present: normal affect, normal mood - Skin Skin exam: Present: warm, dry, intact, normal color Course Course Narrative: I have discussed this patient's case with Dr. Camejo. Dr. Camejo has had a [id number] evaluation with the patient. CT imaging reviewed that was performed at [facility] just prior to the patient's arrival here. CT reads as no mass effect, midline shift, hydrocephalus, acute intracranial hemorrhage, abnormal extra-axial fluid collection, or acute large territory infarct. 0135: I spoke with Dr. Otto of the hospitalist service who accepts the patient for admission under his service for further evaluation of his elevated troponin and likely healthcare associated pneumonia. Vital Signs Temperature 98.7 F 09/08/17 00:01 Pulse Rate 81 09/08/17 00:01 Respiratory Rate 20 09/08/17 00:01 Blood Pressure 174/122 09/08/17 00:01 O2 Sat by Pulse Oximetry 98 09/08/17 00:01 Temperature 98.7 F 09/08/17 00:01 Pulse Rate 91 09/08/17 01:12 Respiratory Rate 18 09/08/17 01:12 Blood Pressure 148/104 09/08/17 01:12 O2 Sat by Pulse Oximetry 96 09/08/17 01:12 Oxygen Delivery Oxygen Delivery Nasal Cannula Chest Pain - Medical Records Medical records reviewed: Yes I reviewed the patient's medical records. - Lab Data Lab results reviewed: Yes I reviewed the patient's lab results. Lab results narrative: Laboratory Last Values WBC 4.9 K/mcL (4.3-11.1) 09/08/17 00:36 RBC 4.09 M/mcL (4.19-5.50) L 09/08/17 00:36 Hgb 12.2 g/dL (12.9-16.9) L 09/08/17 00:36 Hct 36.8 % (37.5-50.1) L 09/08/17 00:36 MCV 90.0 fL (83.0-100.0) 09/08/17 00:36 MCH 29.8 pg (28.0-33.3) 09/08/17 00:36 MCHC 33.2 g/dL (31.6-35.5) 09/08/17 00:36 RDW 14.0 % (11.5-14.5) 09/08/17 00:36 Plt Count 161 K/mcL (140-400) 09/08/17 00:36 MPV 10.9 fL (9.4-12.4) 09/08/17 00:36 Immature Gran % 0.4 % (0-4) 09/08/17 00:36 Seg Neutrophils % 65.5 % 09/08/17 00:36 Lymphocytes % 20.1 % 09/08/17 00:36 Monocytes % 11.4 % 09/08/17 00:36 Eosinophils % 2.0 % 09/08/17 00:36 Basophils % 0.6 % 09/08/17 00:36 Neutrophils # 3.2 K/mcL (1.6-8.9) 09/08/17 00:36 Lymphocytes # 1.0 K/mcL (0.6-4.6) 09/08/17 00:36 Monocytes # 0.6 K/mcL (0.0-1.3) 09/08/17 00:36 Eosinophils # 0.1 K/mcL (0.0-0.6) 09/08/17 00:36 Basophils # 0.0 K/mcL (0.0-0.2) 09/08/17 00:36 Platelet Estimate Normal (Normal) 09/08/17 00:36 Clumped Platelets Few (Not Present) A 09/08/17 00:36 Large Platelets Present (Not Present) A 09/08/17 00:36 Immature Plt Fraction 6.0 % (1.1-6.1) 09/08/17 00:36 Polychromasia 1+ (Not Present) A 09/08/17 00:36 Macrocytosis Present (Not Present) A 09/08/17 00:36 PT 11.4 Seconds (9.4-12.1) 09/08/17 00:36 INR 1.1 09/08/17 00:36 APTT 26.4 Seconds (26.0-36.0) 09/08/17 00:36 Sodium 141 mEq/L (136-145) 09/08/17 00:36 Potassium 3.3 mEq/L (3.5-4.5) L 09/08/17 00:36 Chloride 106 mEq/L (98-109) 09/08/17 00:36 Carbon Dioxide 25 mEq/L (19-29) 09/08/17 00:36 BUN 14 mg/dL (8-26) 09/08/17 00:36 Creatinine 1.40 mg/dL (0.72-1.25) H 09/08/17 00:36 Est GFR ( Amer) 59 (> 60) L 09/08/17 00:36 Est GFR (Non-Af Amer) 49 (> 60) L 09/08/17 00:36 BUN/Creatinine Ratio 10 (6-26) 09/08/17 00:36 Glucose 106 mg/dL (70-99) H 09/08/17 00:36 Calculated Osmolality 293 (280-300) 09/08/17 00:36 Calcium 9.6 mg/dL (8.6-10.8) 09/08/17 00:36 Troponin I 0.19 ng/mL (0-0.03) H* 09/08/17 00:36 B-Natriuretic Peptide 1011 pg/mL (0-100) H 09/08/17 00:36 Result diagrams: 09/08/17 00:36 09/08/17 00:36 Lab Results 09/08/17 09/08/17 09/08/17 Range/Units 00:36 00:36 00:36 WBC 4.9 (4.3-11.1) K/mcL RBC 4.09 L (4.19-5.50) M/mcL Hgb 12.2 L (12.9-16.9) g/dL Hct 36.8 L (37.5-50.1) % MCV 90.0 (83.0-100.0) fL MCH 29.8 (28.0-33.3) pg MCHC 33.2 (31.6-35.5) g/dL RDW 14.0 (11.5-14.5) % Plt Count 161 (140-400) K/mcL MPV 10.9 (9.4-12.4) fL Immature Gran % 0.4 (0-4) % Seg Neutrophils % 65.5 % Lymphocytes % 20.1 % Monocytes % 11.4 % Eosinophils % 2.0 % Basophils % 0.6 % Neutrophils # 3.2 (1.6-8.9) K/mcL Lymphocytes # 1.0 (0.6-4.6) K/mcL Monocytes # 0.6 (0.0-1.3) K/mcL Eosinophils # 0.1 (0.0-0.6) K/mcL Basophils # 0.0 (0.0-0.2) K/mcL Platelet Estimate Normal (Normal) Clumped Platelets Few A (Not Present) Large Platelets Present A (Not Present) Immature Plt Fraction 6.0 (1.1-6.1) % Polychromasia 1+ A (Not Present) Macrocytosis Present A (Not Present) PT 11.4 (9.4-12.1) Seconds INR 1.1 APTT 26.4 (26.0-36.0) Seconds Sodium (136-145) mEq/L Potassium (3.5-4.5) mEq/L Chloride (98-109) mEq/L Carbon Dioxide (19-29) mEq/L BUN (8-26) mg/dL Creatinine (0.72-1.25) mg/dL Est GFR ( Amer) (> 60) Est GFR (Non-Af Amer) (> 60) BUN/Creatinine Ratio (6-26) Glucose (70-99) mg/dL Calculated Osmolality (280-300) Calcium (8.6-10.8) mg/dL Troponin I (0-0.03) ng/mL B-Natriuretic Peptide 1011 H (0-100) pg/mL Urine Color (Yellow) Urine Clarity (Clear) Urine pH (5.0-8.0) pH Units Ur Specific [place] (1.010-1.025) Urine Protein (Neg-Trace) mg/dL Urine Glucose (UA) (Normal) mg/dL Urine Ketones (Negative) mg/dL Urine Blood (Negative) Urine Nitrite (Negative) Urine Bilirubin (Negative) Urine Urobilinogen (Normal) mg/dL Ur Leukocyte Esterase (Negative) 09/08/17 09/08/17 09/08/17 Range/Units 00:36 00:36 01:10 WBC (4.3-11.1) K/mcL RBC (4.19-5.50) M/mcL Hgb (12.9-16.9) g/dL Hct (37.5-50.1) % MCV (83.0-100.0) fL MCH (28.0-33.3) pg MCHC (31.6-35.5) g/dL RDW (11.5-14.5) % Plt Count (140-400) K/mcL MPV (9.4-12.4) fL Immature Gran % (0-4) % Seg Neutrophils % % Lymphocytes % % Monocytes % % Eosinophils % % Basophils % % Neutrophils # (1.6-8.9) K/mcL Lymphocytes # (0.6-4.6) K/mcL Monocytes # (0.0-1.3) K/mcL Eosinophils # (0.0-0.6) K/mcL Basophils # (0.0-0.2) K/mcL Platelet Estimate (Normal) Clumped Platelets (Not Present) Large Platelets (Not Present) Immature Plt Fraction (1.1-6.1) % Polychromasia (Not Present) Macrocytosis (Not Present) PT (9.4-12.1) Seconds INR APTT (26.0-36.0) Seconds Sodium 141 (136-145) mEq/L Potassium 3.3 L (3.5-4.5) mEq/L Chloride 106 (98-109) mEq/L Carbon Dioxide 25 (19-29) mEq/L BUN 14 (8-26) mg/dL Creatinine 1.40 H (0.72-1.25) mg/dL Est GFR ( Amer) 59 L (> 60) Est GFR (Non-Af Amer) 49 L (> 60) BUN/Creatinine Ratio 10 (6-26) Glucose 106 H (70-99) mg/dL Calculated Osmolality 293 (280-300) Calcium 9.6 (8.6-10.8) mg/dL Troponin I 0.19 H* (0-0.03) ng/mL B-Natriuretic Peptide (0-100) pg/mL Urine Color Yellow (Yellow) Urine Clarity Clear (Clear) Urine pH 5.5 (5.0-8.0) pH Units Ur Specific [place] 1.025 (1.010-1.025) Urine Protein 30 H (Neg-Trace) mg/dL Urine Glucose (UA) Normal (Normal) mg/dL Urine Ketones Negative (Negative) mg/dL Urine Blood Negative (Negative) Urine Nitrite Negative (Negative) Urine Bilirubin Negative (Negative) Urine Urobilinogen Normal (Normal) mg/dL Ur Leukocyte Esterase Negative (Negative) - Radiology Data Radiology results reviewed: Yes I reviewed the patient's radiology results. Chest X-Ray 09/08/17 00:06 IMPRESSION: Interval amount of patchy bilateral consolidation, greater on the left, suggestive of pneumonia. Correlate with any clinical evidence of superimposed edema. D/ / Zac Anderson MD / Zac Anderson MD Interpreting Provider: Zac Anderson MD - EKG Data EKG attestation: Yes I reviewed and interpreted this EKG. Attestation Statement - Attestation Attestation: I, Julio Camejo MD, personally evaluated this patient and discussed their management with the midlevel provicer, PAC/MOBILE UI/UX DESIGNER. I reviewed the midlevel provider 's note and agree with the documented findings, medical decision making, and plan of care. 82-year-old male transferred here from the [place] for evaluation of chest pain and elevated troponin. Patient apparently fell earlier and hit his head had a CT there are which was negative however he then began complaining of some chest pain. He had labs there and his troponin was elevated. He was referred here for further evaluation and management. Denies any chest pain at present. He denies shortness of breath. On examination patient is a well-developed well-nourished elderly male in no acute distress. He is alert and answers questions appropriately. There is no cyanosis or diaphoresis. Chest is nontender to palpation. Breath sounds are clear and equal bilaterally. Heart regular rate and rhythm. Abdomen soft and nontender with normal bowel sounds. No pedal edema. Labs reviewed. Troponin 0.19. Chest x-ray shows patchy bilateral consolidation , greater on the left, suggestive of pneumonia. EKG shows a sinus rhythm heart rate of 81. Right bundle-branch block. Moderate T wave abnormality laterally. The hospitalist, Dr. Otto, was consulted and accepted admission of the patient.
[2017-09-08 00:45] LABS: Basophils % 0.6 %; Eosinophils # 0.1 K/mcL (0.0-0.6); Hematocrit 36.8 % (37.5-50.1); Hemoglobin 12.2 g/dL (12.9-16.9); Immature Granulocytes % 0.4 % (0-4); Lymphocytes % 20.1 %; Mean Corpuscular HGB Conc 33.2 g/dL (31.6-35.5); Mean Corpuscular Hemoglobin 29.8 pg (28.0-33.3); Mean Platelet Volume 10.9 fL (9.4-12.4); Monocytes # 0.6 K/mcL (0.0-1.3); Monocytes % 11.4 %; Neutrophils # 3.2 K/mcL (1.6-8.9); Platelet Count 161 K/mcL (140-400); Red Blood Count 4.09 M/mcL (4.19-5.50); Segmented Neutrophils % 65.5 %
[2017-09-08 00:49] LABS: INR 1.1; Prothrombin Time 11.4 Seconds (9.4-12.1)
[2017-09-08 00:52] LABS: Activated Partial Thrombo Time 26.4 Seconds (26.0-36.0)
[2017-09-08 00:56] LABS: Calcium 9.6 mg/dL (8.6-10.8); Potassium 3.3 mEq/L (3.5-4.5)
[2017-09-08 01:10] LABS: Large Platelets Present (Not Present); Platelet Clumps Few (Not Present); Platelet Estimate Normal (Normal)
[2017-09-08] MEDS ORDERED: Aspirin 81 MG TAB.CHEW PO STA (01:10)
[2017-09-08 01:11] LABS: Macrocytosis Present (Not Present)
[2017-09-08 01:12] LABS: Polychromasia 1+ (Not Present)
[2017-09-08] MEDS ORDERED: Piperacillin/Tazobactam 4.5 GM in D5% in Water (Mini-Bag+) 100 ML IVPB ONE (01:31)
[2017-09-08] MEDS ORDERED: Levofloxacin 750 MG/150 ML 750 MG/150 ML BAG IVPB ONE (01:31)
[2017-09-08] MEDS ORDERED: Furosemide 40 MG/4 ML VIAL IVP ONE (01:31)
[2017-09-08] MEDS ORDERED: Vancomycin 1,000 MG in D5% in Water 250 ML IVPB ONE (01:31)
[2017-09-08 01:41] LABS: Bilirubin,Urine Negative (Negative); Blood,Urine Negative (Negative); Clarity,Urine Clear (Clear); Color,Urine Yellow (Yellow); Glucose,Urine (UA) Normal (Normal); Ketones,Urine Negative (Negative); Leukocyte Esterase,Urine Negative (Negative); Nitrite,Urine Negative (Negative); PH,Urine 5.5 pH Units (5.0-8.0); Protein,Urine 30 mg/dL (Neg-Trace); Specific Gravity,Urine 1.025 (1.010-1.025); Urobilinogen,Urine Normal (Normal)
[2017-09-08 01:43] LABS: Squamous Epithelial Cell,Urine Many per lpf (None-Few); WBC,Urine 0-3 per hpf (0-3)
[2017-09-08 02:03] LABS: Bacteria,Urine Few per hpf (None-Few); Mucus,Urine Few (Few)
--- NOTE | 2017-09-08 02:27 | Internal Med History&Physical ---
<Jose Vaughan - Last Filed: 09/08/17 04:26> Date of Encounter: 09/08/17 Time of Encounter: 02:27 Assessment and Plan (1) Healthcare-associated pneumonia Current visit: Yes Status: Acute Afebrile, no leukocytosis CXR revealed interval amount of patchy bilateral consolidation, greater on the left, suggestive of pneumonia. Continue empiric Vanc, Zosyn, and Levaquin Blood and sputum cultures pending Duonebs Incentive spirometry (2) Elevated troponin Current visit: Yes Status: Acute Likley demand ischemia in the setting of CHF and PNA Patient with chronic elevated troponins and CKD stage 3 EKG shows NRS, RBBB, and moderate T wave abnormality laterally. Will continue medical management in the setting of CHF and PNA. He would be high risk for LHC due to CKD and hx of SDH (April 2016). ASA given in the ED Initial troponin 0.19 Trend serial troponins May need Heparin drip if troponin increases (3) Chest pain Current visit: No Status: Resolved CP resolved after NTG Continue home meds Qualifiers: Chest pain type: unspecified Qualified Code(s): R07.9 - Chest pain, unspecified (4) Systolic heart failure Current visit: No Status: Acute CXR revealed interval amount of patchy bilateral consolidation, greater on the left, suggestive of pneumonia. BNP 1011, rales on exam Lasix 40mg IV BID Echo 03/09/17 revealed LVEF 40-45%, moderate LVH Fluid restriction Qualifiers: Heart failure chronicity: acute on chronic Qualified Code(s): I50.23 - Acute on chronic systolic (congestive) heart failure (5) Coronary artery disease Current visit: No Status: Chronic Continue home meds Qualifiers: Coronary Disease-Associated Artery/Lesion type: unspecified vessel or lesion type [place] vs. 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 CT brain at the [facility] revealed no mass effect, midline shift, hydrocephalus, acute intracranial hemorrhage, abnormal extra-axial fluid collection, or acute large territory infarct. (9) CKD (chronic kidney disease) stage 3, GFR 30-59 ml/min Current visit: Yes Status: Chronic Continue to monitor Avoid nephrotoxins (10) Hypokalemia Current visit: Yes Status: Acute Supplement K Continue to monitor (11) DVT prophylaxis Current visit: No Status: Acute Heparin Internal Medicine - H&P: HPI Chief complaint: Back pain Admitted From: Long-term Nursing Facility Plans for Post Hospital Care: Transfer Inp Rehab Fac History of present illness: Mr. Mckeon is a 82 year old wheelchair bound male resident at the [facility] with a PMH of COPD, HTN, cardiac stents, infrarenal AAA, diverticulosis, and subdural hematoma that presented to the ED after falling and hitting his head earlier today while going to the bathroom. He was sent for a noncontrast CT of the head and he developed 8/10 severity substernal, chest pain. Sublingual nitroglycerin alleviated his chest pain and patient denies CP at his time. He was sent here for further evaluation. His only complaints are back pain and urinary incontinence. Patient denies any headache, neck pain, fever, chills, SOB, abd pain, N/V/D/C, dysuria, pressure ulcers, or leg edema. CT brain at the [facility] revealed no mass effect, midline shift, hydrocephalus, acute intracranial hemorrhage, abnormal extra-axial fluid collection, or acute large territory infarct. CXR revealed interval amount of patchy bilateral consolidation, greater on the left, suggestive of pneumonia. Labs in the ED revealed troponin 0.19, K 3.3, Cr 1.40, and BNP 1011. Past Med Surg Social Fam HX - Past Medical History Medical history: COPD, coronary artery disease, hypertension, other (SHD April 2016) Psychiatric history: anxiety, depression - Past Surgical History Surgical History: angioplasty/stent - Social History Smoking Status: Former smoker Smokeless Tobacco Status: No Alcohol use: none Drug use: none Current living situation: ECF Activity Level: Wheelchair bound Recent Out of Country Travel Within the Last 8 Weeks: No Exposure or Possible Exposure to Illness During Travel: No - Family History Mother Living Status: Age at : 50 Cause of : MA Hx Family Cardiac Disorders: Yes Father Living Status: Hx Family Cardiac Disorders: No Hx Family Medical Disorders: No Internal Medicine - H&P: Meds Aspirin 81 mg PO DAILY 05/02/16 [History] Docusate [Colace] 100 mg PO DAILY 05/02/16 [History] Montelukast [Singulair] 10 mg PO DAILY 05/02/16 [History] Tamsulosin [Flomax] 0.4 mg PO DAILY 05/02/16 [History] amLODIPine [Norvasc] 10 mg PO HS 05/02/16 [History] Acetaminophen [Tylenol] 975 mg PO DAILY PRN MDD 3000mg 12/19/16 [History] Bisacodyl [Woman's Laxative] 10 mg PO DAILY PRN 12/19/16 [History] Carboxymethylcellulose Sodium [Refresh Celluvisc] 1 drop OP QID 12/19/16 [ History] Chlorhexidine Gluconate [Betasept] 15 ml TP DAILY 12/19/16 [History] Ferrous Gluconate 324 mg PO DAILY 12/19/16 [History] Fluticasone Propionate Nasal [Flonase] 1 spray NS BID 12/19/16 [History] LevETIRAcetam [Keppra] 750 mg PO BID 12/19/16 [History] Mag Hydrox/Al Hydrox/Simeth [Maalox Advanced Suspension] 10 ml PO QID PRN [History] Megestrol Acetate [Megace] 10 ml PO BID 12/19/16 [History] Melatonin 6 mg PO HS PRN 12/19/16 [History] Metoprolol Succinate 25 mg PO DAILY 12/19/16 [History] Mirtazapine [Remeron] 30 mg PO HS 12/19/16 [History] Nitroglycerin 0.4 mg SL Q5M PRN 12/19/16 [History] Oxybutynin [Ditropan] 5 mg PO BID 12/19/16 [History] Tiotropium [Spiriva] 1 cap IH DAILY 12/19/16 [History] Tramadol HCl [Ultram] 50 mg PO HS PRN 12/19/16 [History] Albuterol Neb [Proventil Neb] 2.5 mg IH Q6HR 30 Days vial.neb 12/21/16 [Rx] Tramadol HCl [Ultram] 25 mg PO QAM #30 tablet 12/21/16 [Rx] Erythromycin OPTH Oint 1 appl RIGHT EYE ONCE #1 tube 02/02/17 [Rx] Amoxicillin/Clavulanate [Augmentin] 875 mg PO BIDWM #12 tablet 03/14/17 [Rx] levoFLOXacin [Levofloxacin] 500 mg PO DAILY #3 tablet 03/14/17 [Rx] 3 Allergy/AdvReac Type Severity Reaction Status Date / Time chicken Allergy Hives Uncoded 03/11/17 05:43 All Systems PM: A 10-system review of systems was performed and is negative for pertinent findings except as documented above in the HPI. - Constitutional Constitutional: falls, no chills, no fatigue, no fever(s), no weakness, no weight gain, no weight loss - EENT Eyes: no change in vision, no other visual disturbances Nose, mouth and throat: no change in voice, no nasal congestion, no sore throat - Cardiovascular Cardiovascular ROS IM: no chest pain, no diaphoresis, no lightheadedness, no palpitations - Respiratory Respiratory: no cough, no dyspnea, no excessive phlegm production - Gastrointestinal Gastrointestinal: no abdominal pain, no constipation, no diarrhea, no nausea, no vomiting - Genitourinary Genitourinary ROS male: urinary incontinence, urinary urgency, no difficulty urinating, no urinary frequency - Musculoskeletal Musculoskeletal ROS IM: arthralgias, back pain, myalgias, no numbness, no tingling - Integumentary Integumentary IM: no erythema, no skin ulcer - Neurological Neurological ROS: abnormal gait, weakness, no confusion, no dizziness, no focal weakness, no numbness, no radicular pain, no tingling, no tremor(s) - Psychiatric Psychiatric: no anxiety, no depression - Endocrine Endocrine IM: no polydipsia, no polyphagia, no polyuria - Hematologic/Lymphatic Hematologic/Lymphatic: no easy bleeding, no easy bruising - Constitutional Vitals: Temp Pulse Resp BP Pulse Ox 98.7 F 91 18 148/104 96 09/08/17 00:01 09/08/17 01:12 09/08/17 01:12 09/08/17 01:12 09/08/17 01:12 General appearance: Present: cooperative, mild distress, A&O X 3, pleasant, answers questions appropriately - Head Head exam: Present: atraumatic, normal inspection, normocephalic - Expanded Eye Exam Eyelids: left: erythema - ENT ENT exam: Present: mucous membranes moist, normal oropharynx - Neck Neck exam general surgery: Present: lymphadenopathy, tenderness, supple - Respiratory Respiratory exam: Present: decreased breath sounds (bibasilar), rales. Absent: accessory muscle use, respiratory distress, wheezes - Cardiovascular Cardiovascular exam: Present: RRR, +S1, +S2 - GI/Abdominal GI/Abdominal exam: Present: normal bowel sounds, soft. Absent: distended, firm , guarding, tenderness - Extremities Exam Extremities exam: Present: full ROM, pedal edema (1+), warm - Back Exam Back exam: Present: normal inspection. Absent: paraspinal tenderness, tenderness, vertebral tenderness - Neurological Exam Neurological exam: Present: alert, no focal deficits, strengths equal and symetr throughout. Absent: motor sensory deficit - Psychiatric Psychiatric exam: Present: anxious, normal affect - Skin Skin exam: Present: dry, normal color, warm Additional comments: no sacral ulcer Internal Med - H&P Results - Labs CBC & Chem 7: 09/08/17 03:36 09/08/17 03:36 - EKG Data -: EKG Interpreted by Myself EKG shows normal: sinus rhythm (NSR HR 81. Right bundle-branch block. Moderate T wave abnormality laterally.) <Day Otto - Last Filed: 09/08/17 05:45> Date of Encounter: 09/08/17 Internal Medicine - H&P: HPI History of present illness: Mr. Mckeon is a 82 year old male All Systems PM: A 10-system review of systems was performed and is negative for pertinent findings except as documented above in the HPI. - Constitutional Vitals: Temp Pulse Resp BP Pulse Ox 97.6 F 73 18 115/80 96 09/08/17 03:51 09/08/17 03:51 09/08/17 04:20 09/08/17 03:51 09/08/17 04:20 Internal Med - H&P Results - Labs CBC & Chem 7: 09/08/17 03:36 09/08/17 03:36 Labs: Short CBC 09/08/17 Range/Units 03:36 WBC 4.3 (4.3-11.1) K/mcL Hgb 12.4 L (12.9-16.9) g/dL Hct 38.6 (37.5-50.1) % Plt Count 147 (140-400) K/mcL Neutrophils # 2.7 (1.6-8.9) K/mcL BMP 09/08/17 03:36 Sodium 140 Potassium 3.2 L Chloride 104 Carbon Dioxide 27 BUN 13 Creatinine 1.42 H Glucose 136 H Calcium 9.4 Cardiac Enzymes 09/08/17 Range/Units 03:36 Troponin I 0.18 H* (0-0.03) ng/mL Liver Function 09/08/17 Range/Units 03:36 Total Bilirubin 0.4 (0.2-1.2) mg/dL AST 19 (5-34) Units/L ALT 15 (0-55) Units/L Alkaline Phosphatase 54 (38-126) Units/L Albumin 3.6 (3.5-5.0) g/dL - Attending Attestation I have personally and independently seen the patient and examining and discussing plan with the resident. Patient was sent from [facility] While he was taken to CT he started complaining of chest pain and therefore he was transferred to our ER while his troponin was noted elevated in the range of 0.11. In our ER his first troponin was 0.18 and the second one was 0.19. Chest x-ray showed bilateral pneumonia more on the left than on the right. As I saw the patient he is complaining of shortness of breath. On examination I noted inspiratory wheezing consistent with CHF. No pedal edema though. Bilateral JVD also noted. He has been given IV Lasix 40 but he has refused to allow putting Rudolph catheter and therefore nurses are unable to record exact output. His oxygen saturation is 97% on nasal oxygen. According to resident his echocardiogram showed EF of 40% and we suspect acute systolic CHF. We will aggressively diurese him and check his CBC and CMP in the morning. Elevation of troponin is noted chronic and I suspect out of it is probably demand ischemia therefore he will be okay with beta penelope and aspirin at this time. For his pneumonia will give him IV Zosyn which I think would be enough for now. I will order a swallowing evaluation.
[2017-09-08] MEDS ORDERED: Nitroglycerin 0.4 MG TAB.SUBL SL PRN ×2 (02:32→05:49)
[2017-09-08] MEDS ORDERED: *HR* Morphine 2 MG/ML SYRINGE IVP PRN (02:32)
[2017-09-08] MEDS ORDERED: Vancomycin (wt based) 1,000 MG VIAL IVPB SCH (03:00)
[2017-09-08] MEDS ORDERED: Potassium Effervescent 25 MEQ TABLET.EFF PO ONE (03:19)
[2017-09-08] MEDS ORDERED: Levofloxacin 750 MG/150 ML 750 MG/150 ML BAG IVPB SCH (03:45)
[2017-09-08 04:12] LABS: Basophils % 0.5 %; Eosinophils # 0.1 K/mcL (0.0-0.6); Eosinophils % 2.6 %; Hematocrit 38.6 % (37.5-50.1); Hemoglobin 12.4 g/dL (12.9-16.9); Immature Granulocytes % 0.5 % (0-4); Lymphocytes % 22.7 %; Mean Corpuscular HGB Conc 32.1 g/dL (31.6-35.5); Mean Corpuscular Hemoglobin 29.1 pg (28.0-33.3); Mean Corpuscular Volume 90.6 fL (83.0-100.0); Mean Platelet Volume 11.4 fL (9.4-12.4); Monocytes # 0.4 K/mcL (0.0-1.3); Monocytes % 10.3 %; Neutrophils # 2.7 K/mcL (1.6-8.9); Platelet Count 147 K/mcL (140-400); Red Blood Count 4.26 M/mcL (4.19-5.50); Segmented Neutrophils % 63.4 %
[2017-09-08] MEDS: Ipratropium/Albuterol Neb 3 ML IH SCH ×5 (04:20→20:21)
[2017-09-08 04:25] LABS: Albumin 3.6 g/dL (3.5-5.0); Albumin/Globulin Ratio 1.2 (1.1-2.2); Bilirubin,Total 0.4 mg/dL (0.2-1.2); Calcium 9.4 mg/dL (8.6-10.8); Potassium 3.2 mEq/L (3.5-4.5); Total Protein 6.6 g/dL (6.0-8.3)
[2017-09-08] MEDS ORDERED: Furosemide 100 MG/10 ML VIAL IVP ONE (05:09)
[2017-09-08] MEDS: Furosemide 40 MG/4 ML VIAL IVP SCH ×2 (05:11→18:02)
[2017-09-08] MEDS: *HR* Heparin 5,000 UNIT/ML VIAL SQ SCH ×4 (05:28→20:47)
[2017-09-08] MEDS ORDERED: Magnesium Sulfate 2 GM in D5% in Water 100 ML IVPB ONE (05:49)
[2017-09-08] MEDS ORDERED: Piperacillin/Tazobactam 3.375 GM in D5% in Water (Mini-Bag+) 100 ML IVPB SCH (10:00)
[2017-09-08] MEDS: Aspirin 81 MG TAB.CHEW PO SCH (10:33)
--- NOTE | 2017-09-08 17:51 | Event Note ---
Date of Encounter: 09/08/17 Time of Encounter: 17:49 82/male Patient is admitted with healthcare associated pneumonia/elevated troponin/ systolic heart failure. Elevated troponin is likely secondary to demand ischemia. Patient seen and examined. Chart reviewed. Patient is comfortably lying in the bed. Family is not at bedside. Examination of head, nose, eyes, ears, throat and cervical area did not show any abnormality. Examination of heart reveals a systolic murmur.Air entry is bilaterally equal. Plan: We will continue present management. Patient's CODE STATUS is a DNR comfort care. We will try to get family on the board.
[2017-09-08] MEDS: Piperacillin/Tazobactam 3.375 GM in D5% in Water (Mini-Bag+) 100 ML IVPB SCH (18:01)
[2017-09-08] MEDS: Vancomycin 1,500 MG in D5% in Water 250 ML IVPB SCH (23:34)
[2017-09-09] MEDS: Ipratropium/Albuterol Neb 3 ML IH SCH ×7 (00:18→23:48)
[2017-09-09] MEDS: Piperacillin/Tazobactam 3.375 GM in D5% in Water (Mini-Bag+) 100 ML IVPB SCH ×2 (02:17→14:31)
[2017-09-09 04:09] LABS: Basophils % 0.8 %; Eosinophils # 0.2 K/mcL (0.0-0.6); Eosinophils % 3.5 %; Hematocrit 39.6 % (37.5-50.1); Hemoglobin 12.9 g/dL (12.9-16.9); Immature Granulocytes % 0.4 % (0-4); Lymphocytes # 1.2 K/mcL (0.6-4.6); Lymphocytes % 22.7 %; Mean Corpuscular HGB Conc 32.6 g/dL (31.6-35.5); Mean Corpuscular Hemoglobin 29.3 pg (28.0-33.3); Mean Corpuscular Volume 89.8 fL (83.0-100.0); Mean Platelet Volume 11.5 fL (9.4-12.4); Monocytes # 0.6 K/mcL (0.0-1.3); Monocytes % 11.7 %; Neutrophils # 3.1 K/mcL (1.6-8.9); Platelet Count 136 K/mcL (140-400); Red Blood Count 4.41 M/mcL (4.19-5.50); Red Cell Distribution Width 14.1 % (11.5-14.5); Segmented Neutrophils % 60.9 %
[2017-09-09 04:25] LABS: Albumin 3.7 g/dL (3.5-5.0); Albumin/Globulin Ratio 1.2 (1.1-2.2); Bilirubin,Total 0.7 mg/dL (0.2-1.2); Calcium 9.6 mg/dL (8.6-10.8); Potassium 3.2 mEq/L (3.5-4.5); Total Protein 6.7 g/dL (6.0-8.3)
[2017-09-09] MEDS: *HR* Heparin 5,000 UNIT/ML VIAL SQ SCH ×3 (06:12→21:11)
[2017-09-09] MEDS ORDERED: Aminoglycoside Consult 1 EACH MC ONE (07:37)
[2017-09-09] MEDS: Aspirin 81 MG TAB.CHEW PO SCH (08:26)
[2017-09-09] MEDS: Furosemide 40 MG/4 ML VIAL IVP SCH ×2 (08:26→17:26)
--- NOTE | 2017-09-09 12:02 | Electrocardiograph Report ---
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
[2017-09-09] MEDS ORDERED: Potassium Chloride Elixir 20 MEQ/15 ML UDC PO ONE (13:07)
[2017-09-09] MEDS ORDERED: Nitroglycerin 0.4 MG TAB.SUBL SL PRN (13:09)
[2017-09-09] MEDS ORDERED: Mag Hydrox/Al Hydrox/Simeth 30 ML UDC PO PRN (13:09)
--- NOTE | 2017-09-09 13:18 | Internal Med Progress Note ---
Date of Encounter: 09/09/17 Time of Encounter: 13:14 - Assessment and plan (1) Pneumonia Current Visit: No Status: Acute Assessment and plan: Likely hospital-acquired pneumonia as he was in the hospital very recently. Plan: We will continue antibiotics for now. Blood culture is negative so far. A blood culture is negative by tomorrow morning then we will discontinue vancomycin Qualifiers: Pneumonia type: due to unspecified organism Laterality: left Lung location: lower lobe of lung Qualified Code(s): J18.1 - Lobar pneumonia, unspecified organism (2) Elevated troponin Current Visit: Yes Status: Acute Assessment and plan: Elevated troponin is likely secondary to demand ischemia. Patient's son is at bedside. According to patient's son when patient was hospitalized in the month of November he had a similar rise in troponin. Patient was given option that time regarding intervention versus medical management. Patient preferred medical management and told his son that he never prefers to go for any kind of intervention. This admission also patient does not want any intervention. Patient's son who was sitting next to him and agrees with the same Plan: We will follow the patient's wish. (3) COPD (chronic obstructive pulmonary disease) with emphysema Current Visit: No Status: Chronic Assessment and plan: Stable COPD Qualifiers: Emphysema type: unspecified Qualified Code(s): J43.9 - Emphysema, unspecified (4) HTN (hypertension) Current Visit: No Status: Chronic Assessment and plan: Within acceptable range Qualifiers: Hypertension type: essential hypertension Qualified Code(s): I10 - Essential (primary) hypertension (5) DVT prophylaxis Current Visit: No Status: Acute Assessment and plan: Heparin Medical decision making: This patient has a moderate to severe risk of worsening in spite of being on appropriate medication due to underlying comorbidities and advanced age - Subjective Interval history: Patient seen and examined. Chart reviewed. Patient's son is at bedside. Patient denies chest pain, shortness of breath, nausea, abdominal pain, diarrhea or dizziness - Constitutional Vitals: Temp Pulse Resp BP Pulse Ox 97.9 F 98 16 116/100 98 09/09/17 11:42 09/09/17 11:42 09/09/17 11:42 09/09/17 11:42 09/09/17 11:42 General appearance: Present: cooperative, mild distress, A&O X 3, pleasant, answers questions appropriately - Head Head exam: Present: atraumatic, normocephalic - Eye Eye exam: Present: PERRL, conjuntiva pink, sclera anicteric Pupils: Present: PERRL - Neck Neck exam general surgery: Present: supple, trachea midline. Absent: lymphadenopathy - Respiratory Respiratory exam: Present: CTAB. Absent: accessory muscle use, rales, rhonchi, wheezes - Cardiovascular Cardiovascular exam: Present: RRR, +S1, +S2. Absent: diastolic murmur, gallop, rubs, systolic murmur - GI/Abdominal GI/Abdominal exam: Present: normal bowel sounds, soft, no peritoneal signs. Absent: distended, tenderness - Extremities Exam Extremities exam: Present: warm, radial pulses palpable and symmetrical. Absent : calf tenderness, cyanotic, pedal edema - Neurological Exam Neurological exam: Present: CN II-XII intact, oriented X3, no focal deficits. Absent: pronater drift, facial droop, speech deficit - Skin Skin exam: Present: dry, intact Internal Medicine: Result - Labs CBC & Chem 7: 09/09/17 03:22 09/09/17 03:22 Labs: Short CBC 09/09/17 Range/Units 03:22 WBC 5.2 (4.3-11.1) K/mcL Hgb 12.9 (12.9-16.9) g/dL Hct 39.6 (37.5-50.1) % Plt Count 136 L (140-400) K/mcL Neutrophils # 3.1 (1.6-8.9) K/mcL BMP 09/09/17 03:22 Sodium 141 Potassium 3.2 L Chloride 103 Carbon Dioxide 30 H BUN 15 Creatinine 1.61 H Glucose 91 Calcium 9.6 Liver Function 09/09/17 Range/Units 03:22 Total Bilirubin 0.7 (0.2-1.2) mg/dL AST 18 (5-34) Units/L ALT 15 (0-55) Units/L Alkaline Phosphatase 52 (38-126) Units/L Albumin 3.7 (3.5-5.0) g/dL - ABG Interpretation ABG results: PT/INR, D-dimer PT 11.4 Seconds (9.4-12.1) 09/08/17 00:36 - Impressions Impressions Head CT 09/08/17 22:47 IMPRESSION: Postop changes on the left Moderate small vessel ischemic change bilaterally. There is no acute abnormality. Specifically, there is no acute hemorrhage D/ / Mark Infante / Mark Infante Interpreting Provider: Mark Infante Consult Discharge Plan - Plan [facility]errals: [facility] [Primary Care Provider[facility] -
[2017-09-09] MEDS: Budesonide/Formoterol 160/4.5 MDI IH SCH (20:34)
[2017-09-09] MEDS: Melatonin 3 MG TABLET PO PRN (21:10)
[2017-09-09] MEDS: amLODIPine 5 MG TABLET PO SCH (21:10)
[2017-09-09] MEDS: Mirtazapine 15 MG TABLET PO SCH (21:11)
[2017-09-09] MEDS: traZODone 50 MG TABLET PO SCH (21:11)
[2017-09-10] MEDS: Vancomycin 1,500 MG in D5% in Water 250 ML IVPB SCH (01:43)
[2017-09-10] MEDS: Piperacillin/Tazobactam 3.375 GM in D5% in Water (Mini-Bag+) 100 ML IVPB SCH ×2 (01:43→15:14)
[2017-09-10 03:26] LABS: Basophils % 0.4 %; Eosinophils # 0.1 K/mcL (0.0-0.6); Eosinophils % 3.1 %; Hematocrit 38.4 % (37.5-50.1); Hemoglobin 12.7 g/dL (12.9-16.9); Immature Granulocytes % 0.2 % (0-4); Lymphocytes # 1.1 K/mcL (0.6-4.6); Lymphocytes % 25.5 %; Mean Corpuscular HGB Conc 33.1 g/dL (31.6-35.5); Mean Corpuscular Hemoglobin 29.5 pg (28.0-33.3); Mean Corpuscular Volume 89.1 fL (83.0-100.0); Mean Platelet Volume 11.4 fL (9.4-12.4); Monocytes # 0.6 K/mcL (0.0-1.3); Monocytes % 12.5 %; Neutrophils # 2.6 K/mcL (1.6-8.9); Platelet Count 151 K/mcL (140-400); Red Blood Count 4.31 M/mcL (4.19-5.50); Red Cell Distribution Width 13.9 % (11.5-14.5); Segmented Neutrophils % 58.3 %
[2017-09-10 03:41] LABS: Albumin 3.6 g/dL (3.5-5.0); Albumin/Globulin Ratio 1.2 (1.1-2.2); Bilirubin,Total 0.5 mg/dL (0.2-1.2); Calcium 9.5 mg/dL (8.6-10.8); Globulin 2.9 g/dL (2.4-3.5); Potassium 3.1 mEq/L (3.5-4.5); Total Protein 6.5 g/dL (6.0-8.3)
[2017-09-10] MEDS: Ipratropium/Albuterol Neb 3 ML IH SCH ×6 (04:32→23:33)
[2017-09-10] MEDS: *HR* Heparin 5,000 UNIT/ML VIAL SQ SCH ×3 (05:47→21:12)
[2017-09-10] MEDS: Budesonide/Formoterol 160/4.5 MDI IH SCH ×2 (07:49→20:00)
[2017-09-10] MEDS ORDERED: NON-FORMULARY MEDICATION 1 EACH EACH (Atorvastatin Calcium [Lipitor] 20 MG) PO SCH (09:00)
[2017-09-10] MEDS ORDERED: Furosemide 40 MG TABLET PO SCH (09:00)
[2017-09-10] MEDS ORDERED: Aspirin 81 MG TAB.CHEW PO SCH (09:00)
--- NOTE | 2017-09-10 09:44 | Discharge Summary ---
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 Qualifiers: Emphysema type: unspecified Qualified Code(s): J43.9 - Emphysema, unspecified (4) HTN (hypertension) Priority: Secondary Status: Chronic Qualifiers: Hypertension type: essential hypertension Qualified Code(s): I10 - Essential (primary) hypertension (5) DVT prophylaxis Priority: Secondary Status: Acute - Discharge Medications Prescriptions: Furosemide [Lasix] 40 mg PO BID #60 tablet Levofloxacin [Levaquin] 500 mg PO DAILY #4 tablet Home Medications: Aspirin 81 mg PO DAILY 05/02/16 [History] Docusate [Colace] 100 mg PO DAILY PRN 05/02/16 [History] Montelukast [Singulair] 10 mg PO DAILY 05/02/16 [History] Tamsulosin [Flomax] 0.4 mg PO DAILY 05/02/16 [History] amLODIPine [Norvasc] 5 mg PO HS 05/02/16 [History] Acetaminophen [Tylenol] 975 mg PO TID PRN 12/19/16 [History] Bisacodyl [Woman's Laxative] 10 mg PO DAILY PRN 12/19/16 [History] Ferrous Gluconate 324 mg PO DAILY 12/19/16 [History] Mag Hydrox/Al Hydrox/Simeth [Maalox Advanced Suspension] 10 ml PO QID PRN [History] Melatonin 6 mg PO HS PRN 12/19/16 [History] Mirtazapine [Remeron] 30 mg PO HS 12/19/16 [History] Nitroglycerin 0.4 mg SL Q5M PRN 12/19/16 [History] Oxybutynin [Ditropan] 5 mg PO TID 12/19/16 [History] Tramadol HCl [Ultram] 50 mg PO HS PRN 12/19/16 [History] Albuterol Neb [Proventil Neb] 2.5 mg IH Q6HR 30 Days vial.neb 12/21/16 [Rx] Tramadol HCl [Ultram] 25 mg PO QAM #30 tablet 12/21/16 [Rx] Atorvastatin Calcium [Lipitor] 20 mg PO DAILY 09/08/17 [History] Budesonide/Formoterol 160/4.5 [Symbicort 160/4.5] 2 puff IH BID 09/08/17 [ History] CloNIDine HCl [Kapvay] 0.1 mg PO Q8H 09/08/17 [History] Levalbuterol Neb [Xopenex Neb] 1.25 mg IH Q8H PRN 09/08/17 [History] Potassium Chloride [Klor-Con Sprinkle] 10 meq PO DAILY 09/08/17 [History] traZODone [TraZODone] 50 mg PO HS 09/08/17 [History] Carvedilol [Coreg] 3.125 mg PO BIDWM #60 tablet 09/10/17 [Rx] Furosemide [Lasix] 40 mg PO BID #60 tablet 09/10/17 [Rx] Levofloxacin [Levaquin] 500 mg PO DAILY #4 tablet 09/10/17 [Rx] Allergies/Adverse Reactions: 3 Allergy/AdvReac Type Severity Reaction Status Date / Time chicken Allergy Hives Uncoded 03/11/17 05:43 Procedures/tests Complete & Pending: Procedures Performed prior 72 hours Category Date Time Status CT head/brain wo con [CT] Stat Cat Scan 09/08/17 22:47 Completed Date of admission: 09/08/17 18:14 Primary care physician: PCP [place] Discharging clinician: Anish Park Anticipated date of discharge: 09/10/17 - Patient Status Disposition: Transfer SNF Condition: Fair Functional capacity at discharge: wheelchair bound Overall status at discharge: patient is progressing back to baseline - Discharge Instructions Follow Up With: RENA,PCP [Primary Care Provider] - 09/18/17 9:15 am - Diet and Activity Activity: as per physical therapy Diet: low fat, low cholesterol, low salt diet Hospital course: Mr. Mckeon is a 82 year old male presented with chief complaint of fall, transfer from [facility]. Patient is wheelchair-bound and states he fell and hit his head while going to the bathroom. Patient underwent CT of the head which showed no acute abnormality or bleed. When undergoing CT of head patient developed substernal chest pain which was relieved with nitroglycerin. He was transferred to [facility] for further evaluation. Chest x- ray showed bilateral patchy consolidation greater in the left. EKG showed rate of 81 normal sinus rhythm with right bundle-branch block. Troponin were elevated at 0.19, 0.18, 0.18, 0.17 respectively. BNP was elevated at 1011. Previous echo EF 45%, moderate LVH. Patient was started on 2 L supplemental oxygen. and started on lasix for diuresis. Patient Ahlstrom on aspirin, statin , beta penelope. Patient is admitted for hospital acquired bacterial pneumonia and started on vancomycin and Zosyn. Blood cultures after 48 hours were negative and vancomycin was discontinued. He was weaned off oxygen. Elevated troponin secondary to demand ischemia from pneumonia. Patient had similar elevations in the past and decided to undergo medical management and defer any invasive intervention. Furthermore this admission patient did not want any invasive intervention. Patient-hypokalemia due to diuresis. IV Lasix discontinued and patient started on by mouth Lasix, and potassium replaced. Plan: continue levaquin for 4 additional days for total of 7 days of antibiotics. Continue coreg, aspirin and atorvastatin at home. Patient will be transferred to [place] [facility] home care. Continue lasix 40mg daily. - Time Spent with Patient Total time spent providing and/or coordinating discharge services: - Constitutional Vitals: Temp Pulse Resp BP Pulse Ox 97.7 F 83 17 114/86 93 09/10/17 04:15 09/10/17 07:00 09/10/17 07:49 09/10/17 07:00 09/10/17 07:49 General appearance: Present: cooperative, mild distress, A&O X 3, pleasant, answers questions appropriately - Head Head exam: Present: atraumatic, normocephalic - Eye Eye exam: Present: PERRL, conjuntiva pink, sclera anicteric - Neck Neck exam general surgery: Present: supple, trachea midline. Absent: lymphadenopathy - Respiratory Respiratory exam: Present: wheezes. Absent: accessory muscle use, rales, rhonchi - Cardiovascular Cardiovascular exam: Present: RRR, +S1, +S2. Absent: diastolic murmur, gallop, rubs, systolic murmur - GI/Abdominal GI/Abdominal exam: Present: normal bowel sounds, soft, no peritoneal signs. Absent: distended, tenderness - Extremities Exam Extremities exam: Present: warm, radial pulses palpable and symmetrical. Absent : calf tenderness, cyanotic, pedal edema - Neurological Exam Neurological exam: Present: alert, CN II-XII intact, oriented X3, no focal deficits. Absent: pronater drift, facial droop, speech deficit - Skin Skin exam: Present: dry, intact <Daniella,Wenceslao P - Last Filed: 09/10/17 20:50> Date of Encounter: 09/10/17 - Discharge Diagnosis (1) Pneumonia Status: Acute Qualifiers: Pneumonia type: due to unspecified organism Laterality: left Lung location: lower lobe of lung Qualified Code(s): J18.1 - Lobar pneumonia, unspecified organism (2) Elevated troponin Status: Acute (3) COPD (chronic obstructive pulmonary disease) with emphysema Status: Chronic Qualifiers: Emphysema type: unspecified Qualified Code(s): J43.9 - Emphysema, unspecified (4) HTN (hypertension) Status: Chronic Qualifiers: Hypertension type: essential hypertension Qualified Code(s): I10 - Essential (primary) hypertension (5) DVT prophylaxis Status: Acute Procedures/tests Complete & Pending: Procedures Performed prior 72 hours Category Date Time Status CT head/brain wo con [CT] Stat Cat Scan 09/08/17 22:47 Completed Date of admission: 09/08/17 18:14 Primary care physician: PCP [place] Consults: 09/10/17 10:07 Consult to Food Critic [CONS] Routine Reason for SW Consult: patient from [facility]; Kelsea already aware Hospital course: Mr. Mckeon is a 82 year old male - Time Spent with Patient Total time spent providing and/or coordinating discharge services: - Constitutional Vitals: Temp Pulse Resp BP Pulse Ox 97.7 F 83 18 114/86 93 09/10/17 04:15 09/10/17 07:00 09/10/17 20:00 09/10/17 07:00 09/10/17 20:00 - Attending Attestation I examined this patient and my medical decision-making was reviewed with the Resident Physician. I agree with the documented findings, disposition and treatment plan as described except to the extent set forth below.
[2017-09-10] MEDS: Aspirin 81 MG TAB.CHEW PO SCH (09:53)
[2017-09-10] MEDS: Furosemide 40 MG/4 ML VIAL IVP SCH (09:53)
--- NOTE | 2017-09-10 09:53 | Physician Discharge Referral ---
<Anish Park - Last Filed: 09/10/17 14:04> ExtendedCare Referral Info Transfer To: [place] [facility] Provider in Charge: Dr. 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 (4) HTN (hypertension) Priority: Secondary Status: Chronic (5) DVT prophylaxis Priority: Secondary Status: Acute Prognosis: Good Aware of Diagnosis: Patient, Family Aware of Prognosis: Patient, Family - Transfer Medications Prescriptions: Furosemide [Lasix] 40 mg PO BID #60 tablet Levofloxacin [Levaquin] 500 mg PO DAILY #4 tablet Home Medications: Aspirin 81 mg PO DAILY 05/02/16 [History] Docusate [Colace] 100 mg PO DAILY PRN 05/02/16 [History] Montelukast [Singulair] 10 mg PO DAILY 05/02/16 [History] Tamsulosin [Flomax] 0.4 mg PO DAILY 05/02/16 [History] amLODIPine [Norvasc] 5 mg PO HS 05/02/16 [History] Acetaminophen [Tylenol] 975 mg PO TID PRN 12/19/16 [History] Bisacodyl [Woman's Laxative] 10 mg PO DAILY PRN 12/19/16 [History] Ferrous Gluconate 324 mg PO DAILY 12/19/16 [History] Mag Hydrox/Al Hydrox/Simeth [Maalox Advanced Suspension] 10 ml PO QID PRN [History] Melatonin 6 mg PO HS PRN 12/19/16 [History] Mirtazapine [Remeron] 30 mg PO HS 12/19/16 [History] Nitroglycerin 0.4 mg SL Q5M PRN 12/19/16 [History] Oxybutynin [Ditropan] 5 mg PO TID 12/19/16 [History] Tramadol HCl [Ultram] 50 mg PO HS PRN 12/19/16 [History] Albuterol Neb [Proventil Neb] 2.5 mg IH Q6HR 30 Days vial.neb 12/21/16 [Rx] Tramadol HCl [Ultram] 25 mg PO QAM #30 tablet 12/21/16 [Rx] Atorvastatin Calcium [Lipitor] 20 mg PO DAILY 09/08/17 [History] Budesonide/Formoterol 160/4.5 [Symbicort 160/4.5] 2 puff IH BID 09/08/17 [ History] CloNIDine HCl [Kapvay] 0.1 mg PO Q8H 09/08/17 [History] Levalbuterol Neb [Xopenex Neb] 1.25 mg IH Q8H PRN 09/08/17 [History] Potassium Chloride [Klor-Con Sprinkle] 10 meq PO DAILY 09/08/17 [History] traZODone [TraZODone] 50 mg PO HS 09/08/17 [History] Carvedilol [Coreg] 3.125 mg PO BIDWM #60 tablet 09/10/17 [Rx] Furosemide [Lasix] 40 mg PO BID #60 tablet 09/10/17 [Rx] Levofloxacin [Levaquin] 500 mg PO DAILY #4 tablet 09/10/17 [Rx] Allergies/Adverse Reactions: 3 Allergy/AdvReac Type Severity Reaction Status Date / Time chicken Allergy Hives Uncoded 03/11/17 05:43 - Respiratory Orders None Smoking Cessation: Smoking cessation has been advised. For more information, call the [place] Tobacco Quit Line at 4-360-PITH-NOW. - Ancillary Orders May use pressure relief devices daily prn - Advance Directives Code Status: DNR-Comfort Care - Mobility Orders Chair - Rehabiliation Orders Rehab Potential: Fair Rehab Orders: Sternal Precautions, Evaluation for Physical Therapy, Evaluation for Occupational Therapy - Treatments Skin tear care topically daily PRN per policy - Diet Orders Mechanical Soft (thing liquids), Pureed, Cardiac CERTIFICATION: I certify that the transfer of the above named patient to an Extended Care Facility is necessary for the continuing treatment of the diagnosis listed. The above information is true and accurate reflection of patient's current condition. Confidential - Redisclosure prohibited without a patient's written consent. <Wenceslao Brewer P - Last Filed: 09/10/17 20:50> - Diagnosis (1) Pneumonia Status: Acute (2) Elevated troponin Status: Acute (3) COPD (chronic obstructive pulmonary disease) with emphysema Status: Chronic (4) HTN (hypertension) Status: Chronic (5) DVT prophylaxis Status: Acute - Respiratory Orders Smoking Cessation: Smoking cessation has been advised. For more information, call the [place] Tobacco Quit Line at 2-956-AQGH-NOW. CERTIFICATION: I certify that the transfer of the above named patient to an Extended Care Facility is necessary for the continuing treatment of the diagnosis listed. The above information is true and accurate reflection of patient's current condition. Confidential - Redisclosure prohibited without a patient's written consent.
[2017-09-10] MEDS ORDERED: Potassium Chloride Elixir 20 MEQ/15 ML UDC PO ONE ×2 (11:52→20:50)
[2017-09-10] MEDS: Mirtazapine 15 MG TABLET PO SCH (21:11)
[2017-09-10] MEDS: Melatonin 3 MG TABLET PO PRN (21:12)
[2017-09-10] MEDS: amLODIPine 5 MG TABLET PO SCH (21:12)
[2017-09-10] MEDS: traZODone 50 MG TABLET PO SCH (21:12)
[2017-09-11] MEDS: Ondansetron 4 MG/2 ML VIAL IVP PRN ×2 (03:09→09:54)
[2017-09-11] MEDS: Piperacillin/Tazobactam 3.375 GM in D5% in Water (Mini-Bag+) 100 ML IVPB SCH (03:09)
[2017-09-11] MEDS: Ipratropium/Albuterol Neb 3 ML IH SCH ×2 (03:48→07:49)
[2017-09-11 05:43] LABS: Basophils % 0.4 %; Eosinophils # 0.2 K/mcL (0.0-0.6); Eosinophils % 3.7 %; Hematocrit 40.2 % (37.5-50.1); Hemoglobin 13.2 g/dL (12.9-16.9); Immature Granulocytes % 0.2 % (0-4); Lymphocytes % 17.4 %; Mean Corpuscular HGB Conc 32.8 g/dL (31.6-35.5); Mean Corpuscular Hemoglobin 29.6 pg (28.0-33.3); Mean Corpuscular Volume 90.1 fL (83.0-100.0); Mean Platelet Volume 12.3 fL (9.4-12.4); Monocytes # 0.7 K/mcL (0.0-1.3); Monocytes % 11.9 %; Neutrophils # 3.6 K/mcL (1.6-8.9); Platelet Count 150 K/mcL (140-400); Red Blood Count 4.46 M/mcL (4.19-5.50); Red Cell Distribution Width 14.1 % (11.5-14.5); Segmented Neutrophils % 66.4 %
[2017-09-11 06:20] LABS: Albumin 3.7 g/dL (3.5-5.0); Albumin/Globulin Ratio 1.1 (1.1-2.2); Bilirubin,Total 0.6 mg/dL (0.2-1.2); Globulin 3.3 g/dL (2.4-3.5); Magnesium 2.4 mg/dL (1.6-2.6); Potassium 3.7 mEq/L (3.5-4.5)
[2017-09-11] MEDS: *HR* Heparin 5,000 UNIT/ML VIAL SQ SCH (06:50)
[2017-09-11 07:20] VITALS: BP 124/87
[2017-09-11] MEDS: Budesonide/Formoterol 160/4.5 MDI IH SCH (07:49)
[2017-09-11] MEDS: Aspirin 81 MG TAB.CHEW PO SCH (08:42)
[2017-09-11] MEDS ORDERED: Furosemide 40 MG TABLET PO SCH (09:00)
--- NOTE | 2017-09-11 19:23 | Event Note ---
Date of Encounter: 09/11/17 Time of Encounter: 08:00 Mr Mckeon was originally discharged yesterday but potassium was low. Potassium replaced and normal today. Pt complaining of some back pain. [facility] Exam Alert. Mod distress Heart reg No wheeze I/P 1 Hypokalemia - resolved D/C today.
== END 2017-09-11 10:49 | DRG 190 ==
LOC: EMEROO → 2NENU → SUATTDRO 18:14
PROVIDERS: ADMIT Internal Medicine; ATTEND Internal Medicine